=== PATIENT | male | born 1950 | race Caucasian/White ===

== ENCOUNTER → 2021-01-21 09:31 | Outpatient (BNVA) | payer MEDICARE, OTHER, SELFPAY | PROVIDERS: PCP Internal Medicine; Visit Provider Urology | DX: Z13.89 Encounter for screening for other disorder (principal) | CPT/HCPCS: 99212 ==

== ENCOUNTER 2021-02-26 13:56 | Outpatient (REF) | payer MEDICARE, OTHER, SELFPAY ==
--- NOTE | ~2021-02-26 | CT_ITS ---
EXAMINATION: CT SINUS WITHOUT CONTRAST CLINICAL INFORMATION: Sinonasal polyp, deviated septum. COMPARISON: None TECHNIQUE: 2 mm thin axial and 2 mm thin sagittal and coronal images of the sinuses were obtained without contrast. This CT examination was performed using dose optimization techniques as appropriate, variously including the following: *Automated exposure control *Adjustment of mA and/or kV according to patient size (this includes techniques or standardized protocols for targeted exams where dose is matched to indication/reason for exam; i.e. extremities or head) *Use of iterative reconstruction technique DLP: 112 mGy-cm FINDINGS: FRONTAL SINUSES AND DRAINAGE PATHWAYS: Normal. MAXILLARY SINUSES AND DRAINAGE PATHWAYS: There is lobulated mucosal periosteal thickening throughout both sinuses. The ostiomeatal complexes are widely patent. There is evidence of bilateral functional endoscopic sinus surgery. ETHMOID SINUSES: There is minimal mucoperiosteal thickening bilateral anterior ethmoid sinuses. The ethmoid roofs are symmetric, with olfactory fossa depth of 0.4 cm on the right and 0.3 cm on the left. SPHENOID SINUSES AND DRAINAGE PATHWAYS: Normal. The sphenoid ostia are patent. The carotid canals are covered by bone. NASAL CAVITY/NASOPHARYNX: The nasal cavity is clear. There is no nasal septal deviation/spurring. There is a paradoxical left middle turbinate. The turbinates are otherwise unremarkable. ADDITIONAL RELEVANT FINDINGS: No periapical disease is seen. The TMJs articulate normally. The orbits and skull base soft tissues are unremarkable. The middle ear cavities and mastoid air cells are clear. Limited evaluation demonstrates no acute intracranial findings. CT/CT sinus wo con IMPRESSION: Moderate mucoperiosteal thickening likely polyposis of the maxillary sinuses. There is evidence of previous functional endoscopic sinus surgery changes. Minimal mucoperiosteal thickening anterior ethmoid sinuses. Bilateral frontoethmoidal recesses are widely patent.
== END 2021-02-26 13:57 | disposition home or self-care (01) ==
LOC: HO.CT 13:56
PROVIDERS: PCP Internal Medicine; Visit Provider Otolaryngology
DX: J34.2 Deviated nasal septum (principal); J33.8 Other polyp of sinus
CPT/HCPCS: 70486

== ENCOUNTER → 2022-01-25 09:21 | Outpatient (BNVA) | payer MEDICARE, OTHER, SELFPAY | PROVIDERS: PCP Internal Medicine; Visit Provider Urology | DX: R97.20 Elevated prostate specific antigen [PSA] (principal); N52.9 Male erectile dysfunction, unspecified | CPT/HCPCS: 99212 ==

== ENCOUNTER 2024-06-13 11:25 | Outpatient (REF) | payer MEDICARE, OTHER, SELFPAY ==
[2024-06-13 14:08] LABS: Prostate Specific Antigen 1.15 ng/mL (<0.05-4.0)
== END 2024-06-13 11:26 | disposition home or self-care (01) ==
LOC: HO.10HDL 11:25
PROVIDERS: Visit Provider Urology
DX: Z12.5 Encounter for screening for malignant neoplasm of prostate (principal); R97.20 Elevated prostate specific antigen [PSA]
CPT/HCPCS: 36415; 84153

== ENCOUNTER 2024-06-21 09:17 | Outpatient (AMB) | payer MEDICARE, OTHER, SELFPAY ==
--- NOTE | 2024-06-21 09:26 | A.OFFVIS_ITS ---
Intake Visit Reasons: 1Y PSA(SET) Intake Note: Patient is Present for PSA Follow up Urology Med: Sildenafil Antibiotic Allergy: Azithromycin, Cipro Blood Thinner: None PSA: 06/13/24 1.15 Patient is requesting a refill be [facility] to [facility] Required: No Accompanied by: Self / Same As Patient Allergies azithromycin Allergy (Unknown, Verified 06/21/24 09:29) Unknown ciprofloxacin [Cipro] Allergy (Unknown, Verified 06/21/24 09:29) Unknown Dust Allergy (Unknown, Uncoded 06/21/24 09:29) Unknown Mold Allergy (Unknown, Uncoded 06/21/24 09:29) Unknown HPI Comments Details: Porfirio Armstrong is a very pleasant male. He is a patient of Dr Castillo. He is seen in the office today for the following urologic conditions. - erectile dysfunction Last seen in mid 2021 Had cardiac bypass surgery early this year Had minimal symptoms but occluded LAD Stable urinary parameter. Minimal urge, effective stream, complete emptying. PSA remains in range Continues with good response to sildenafil on demand Erectile dysfunction: Continue good response to intermittent medications He presents today for for continued evaluation and management of erectile dysfunction. Symptoms have been present for/since years ago. Current treament includes Viagra/sildenafil. Treatment side effects include none. Prior therapies include oral medications. At this time he experiences erections are full, rigid and adequate for vaginal penetration. Nocturnal erections do occur. Currently they are in a stable relationship. Recent labs included a PSA (prostate-specific antigen) November 2014 0.9, January 2017 1.4, 01/24 1.4, 01/25 1.5, 01/26 1.4, 06/30 1.2 Overall he is satisfied with the current management. Therapeutic plan includes maintaining current therapy - Rx will be provided. [facility] Medical History Allergic rhinitis Erectile dysfunction Review of Systems Const Denies chills and Denies fever(s) Card Reports no additional complaints and Denies syncope Resp Denies cough GI Denies abdominal pain and Denies heartburn Reports as per HPI and Denies change in libido Neuro Denies syncope Psych Denies change in libido Endo Denies change in libido Physical Exam Const General: cooperative, healthy appearing, comfortable and no acute distress Orientation/consciousness: patient oriented x3 HEENT Face and sinus: Yes normal facial exam Mouth: moist mucous membranes Neck Neck: Yes normal visual inspection, Yes full ROM and Yes trachea midline Chest Chest palpation & inspection: normal inspection of the chest Resp Effort & Inspection: normal respiratory effort, able to speak in complete sentences and no respiratory distress GI Inspection: Yes normal to inspection Back/Spine/Pelvis Cervical Spine: normal cervical lordosis Thoracic/Lumbar Spine: thoracic and lumbar spine normal to inspection Skin General skin exam: no rashes or lesions noted Neuro General: patient oriented x3, gait normal, tone normal and moves all extremities Extrem General: Yes normal to inspection and Yes capillary refill normal Assessment & Plan Assessment & Plan (1) Erectile dysfunction: Code(s): N52.9 - Male erectile dysfunction, unspecified Category: Medical Plan Twelve month follow-up Medications: Refilled sildenafil administer 30 minutes to 4 hours before activity 100 mg PO DAILY PRN 30 tabs 3RF sexual activity 90 days N52.9 - Male erectile dysfunction, unspecified Patient Instructions: Imaging studies, laboratory and physical exam results were discussed and reviewed in detail. No major barriers to patient understanding were identified. An opportunity to ask questions regarding the treatment plan was provided. All questions were answered. The patient expressed understanding and agreement with the above treatment plan. The patient is aware they should contact our office by phone for worsening of their current condition or the appearance of new urologic symptoms. Compliance is encouraged with any medications and followup testing that is ordered. It is a privilege to participate in the urologic care of your patient. If you have any questions or concerns regarding treatment for the above conditions, or other urologic issues, please do not hesitate to contact me. The office telephone contact is [phone]. This note is constructed using voice recognition software. While every effort has been made to ensure accuracy vice president pharmacy errors may have been included. Yours sincerely, Dr Lexa Soto MD, [facility] - Urology Providers of Expert, Compassionate Care for the Genitourinary System Coding Level of Care Code Est Pt Level 4 (34353) Diagnoses Erectile dysfunction N52.9
== END 2024-06-21 10:02 | disposition home or self-care (01) ==
PROVIDERS: PCP Internal Medicine; Visit Provider Urology
DX: N52.9 Male erectile dysfunction, unspecified (principal)
CPT/HCPCS: 99214

== ENCOUNTER → 2024-06-21 09:17 | Outpatient (BNVA) | payer MEDICARE, OTHER, SELFPAY | PROVIDERS: PCP Internal Medicine; Visit Provider Urology | DX: N52.9 Male erectile dysfunction, unspecified (principal); Z79.899 Other long term (current) drug therapy | CPT/HCPCS: 99212 ==

== ENCOUNTER 2025-06-12 09:17 | Outpatient (REF) | payer MEDICARE, OTHER, SELFPAY ==
--- OUTSIDE RECORDS SUMMARY | 2025-06-11 09:25 | XMS_ITS | Encounter Summary ---
Author Organization [facility] Address [address] [place] [address] Care Team Providers Care Human Service Specialist Name Role Phone Mary Castillo MD Primary Care Provider [phone] Encounter Details Date Type Department Care Team (Latest Contact Info) Description 06/11/2025 9:25 AM EST Hospital Encounter [facility] [address] [phone] Pari Richey MD [address] [place] [address] Nasal polyps (Primary Dx) Social History Tobacco Use Types Packs/Day Years Used Date Smoking Tobacco: Former Smokeless Tobacco: Never Alcohol Use Standard Drinks/Week Comments Yes 0 (1 standard drink = 0.6 oz pur e alcohol) Sex and Gender Information Value Date Recorded Sex Assigned at Male 04/30/2025 1:19 PM EDT Legal Sex Male 3:34 PM EST Gender Identity Male 04/30/2025 1:19 PM EDT Sexual Orientation Straight 04/30/2025 1: 19 PM EDT documented as of this encounter Last Filed Vital Signs Vital Sign Reading Time Taken Comments Blood Pressure 131/71 06/11/2025 9:31 AM EST Pulse 74 06/11/2025 9:31 AM EST Temperature 36.7 C (98 F) 06/11/2025 9:31 AM EST Respiratory Rate 18 06/11/2025 9:31 AM EST Oxygen Saturation 100% 06/11/2025 9:31 AM EST Inhaled Oxygen Concentration - - Weight - - Height - - Body Mass Index - - documented in this encounter Progress Notes * Jerry Baum RN - 06/11/2025 9:30 AM EST Patient arrives ambulatory for Dupixent injection. Stable patient assessment. Patient resting comfortably in chair with call bailey in reach. Injection allowed to come to room temperature for 45 minutes. 1039-Dupixent Injection administered in LEFT lower abdomen without incident. Patient to remain for 30 minute observation period. 1110-Patient feeling well after observation. Patient's next appointment scheduled and provided to him. Patient stable upon discharge. documented in this encounter Plan of Treatment Upcoming Encounters Date Type Department Care Team (Late st Contact Info) Description 06/25/2025 9:00 AM EST Appointment [address] [phone] 07/09/2025 9:00 AM EST Appointment [facility] [address] [place] [phone] 07/23/2025 9:[address] [facility] [address] [place] [phone] 07/24/2025 8:15 AM EST Office Visit Internal Medicine - [place] [address] [facility] [address] [place] [phone] Mary Castillo MD [address] [place] [phone] 04/28/2026 10:00 AM EDT Ancillary Procedure [facility] [address] [facility] [address] [place] [phone] documented as of this encounter Visit Diagnoses Diagnosis Nasal polyps- Primary Unspecified nasal polyp documented in this encounter Administered Medications Inactive Administered Medications - up to 3 most recent administrations Medication Order MAR Action Action Date Dose Rate Site dupilumab (DUPIXENT) pen 300 mg 300 mg, subcutaneous, Once, On Mon06/11/25 at 1015, For 1 doseIndications:Nasal polyps Given 06/11/2025 10:39 AM EST 300 mg Left Lower Abdomen documented in this encounter Orders Medications Ordered That Paul ht Not Have Been Administered Count Last Ordered Date First Ordered Date dupilumab (DUPIXENT) pen 300 mg 1 5 documented in this encounter Additional Health Concerns Assessment Noted Time PHQ-9 Depression Total Score: 0 01/23/20 8:11 AM EDT documented as of this encounter Care Teams Human Service Specialist Relationship Specialty Start Date End Date Mary Castillo MD [address] [place] [phone] PCP - General Internal Medicine 05/26/18 documented as of this encounter
--- OUTSIDE RECORDS SUMMARY | 2025-06-12 10:15 | XMS_ITS ---
Author Name [facility] Organization Unknown History of Medication Use Medication Directions Dispensed Refills Start Date End Date Status lidocaine (PF) 10 mg/mL (1 %) injection solution Take 1 mL by injection route. 5 active triamcinolone acetonide 40 mg/mL suspension for injection Take 20 mg by injection route. 5 active Marcaine (PF) 0.5 % (5 mg/mL) injection solution Take 8 mL by injection route. 5 active Marcaine (PF) 0.5 % (5 mg/mL) injection solution Take 8 mL by injection route. 5 active triamcinolone acetonide 40 mg/mL suspension for injection Take 80 mg by injection route. 4 active lidocaine (PF) 100 mg/5 mL (2 %) injection syringe Take 2 mL by injection route. 4 09/28/19 24 completed lidocaine (PF) 100 mg/5 mL (2 %) injection syringe Take 2 mL by injection route. 4 09/28/19 24 completed meloxicam 15 mg tablet Take 1 tablet every day by oral route with meals for 7 days. 3 12/28/19 24 active Kenalog 40 mg/mL suspension for injection Take 1 mL by injection route. 3 active lidocaine (PF) 10 mg/mL (1 %) injection solution Take 1 mL by injection route. 3 active celecoxib 200 mg capsule TAKE 1 CAPSULE BY MOUTH EVERY DAY 12/28/19 25 completed celecoxib 200 mg capsule TAKE 1 CAPSULE BY MOUTH EVERY DAY 12/28/19 25 active polymyxin B sulfate 10,000 unit-trimethoprim 1 mg/mL eye drops INSTILL 1 DROP 4 TIMES A DAY FOR 7 DAYS 12/28/19 25 completed amoxicillin 875 mg-potassium clavulanate 125 mg tablet TAKE 1 TABLET BY MOUTH TWICE A DAY FOR 7 DAYS 12/11/19 25 completed amoxicillin 875 mg-potassium clavulanate 125 mg tablet TAKE 1 TABLET BY MOUTH TWICE A DAY FOR 7 DAYS 12/11/19 25 completed prednisone 20 mg tablet TAKE 3 TABLETS B Y MOUTH DAILY X 2 DAYS, 2 TABLETS DAILY X 2 DAYS, THEN 1 TABLET DAILY X 2 DAYS 12/11/19 25 completed prednisone 20 mg tablet TAKE 3 TABLETS B Y MOUTH DAILY X 2 DAYS, 2 TABLETS DAILY X 2 DAYS, THEN 1 TABLET DAILY X 2 DAYS 12/11/19 25 completed cephalexin 500 mg capsule TAKE 2 CAPSULES EVERY 12 HOURS BY ORAL ROUTE DIRECTED FOR 7 DAYS, FOR HAND SKIN INFECTION. 09/10/19 25 completed cephalexin 500 mg capsule TAKE 2 CAPSULES EVERY 12 HOURS BY ORAL ROUTE DIRECTED FOR 7 DAYS, FOR HAND SKIN INFECTION. 09/10/19 25 active cephalexin 500 mg tablet TAKE 1 TABLET BY MOUTH THREE TIMES A DAY FOR 7 DAYS 09/10/19 25 completed cephalexin 500 mg tablet TAKE 1 TABLET BY MOUTH THREE TIMES A DAY FOR 7 DAYS 09/10/19 25 completed GaviLyte-G 236 gram-22.74 gram-6.74 gram-5.86 gram oral solution 04/04/20 24 completed GaviLyte-G 236 gram-22.74 gram-6.74 gram-5.86 gram oral solution 04/04/20 24 completed ipratropium bromide 42 mcg (0.06 %) nasal spray SPRAY ONCE IN EACH NOSTRIL TWICE A DAY 04/04/20 24 completed ipratropium bromide 42 mcg (0.06 %) nasal spray SPRAY ONCE IN EACH NOSTRIL TWICE A DAY 04/04/20 24 completed metoprolol tartrate 25 mg tablet TAKE 1/2 (HALF) TABLET BY MOUTH TWO TIMES A DAY 04/04/20 24 completed metoprolol tartrate 25 mg tablet TAKE 1/2 (HALF) TABLET BY MOUTH TWO TIMES A DAY 04/04/20 24 completed potassium chloride ER 10 mEq capsule,extended release TAKE 1 CAPSULE BY MOUTH TWO TIMES A DAY 04/04/20 24 completed potassium chloride ER 10 mEq capsule,extended release TAKE 1 CAPSULE BY MOUTH TWO TIMES A DAY 04/04/20 24 completed amiodarone 200 mg tablet TAKE 1 TABLET BY MOUTH TWO TIMES A DAY 12/28/19 24 completed amiodarone 200 mg tablet TAKE 1 TABLET BY MOUTH TWO TIMES A DAY 12/28/19 24 completed furosemide 40 mg tablet TAKE 1 TABLET BY MOUTH TWO TIMES A DAY 12/28/19 24 completed furosemide 40 mg tablet TAKE 1 TABLET BY MOUTH TWO TIMES A DAY 12/28/19 24 completed meloxicam 15 mg tablet TAKE 1 TABLET BY MOUTH EVERY DAY WITH MEALS FOR 7 DAYS 12/28/19 24 completed methylprednisolone 4 mg tablets in a dose pack TAKE 6 TABLETS ON DAY 1 DIRECTED ON PACKAGE AND DECREASE BY 1 TAB EACH DAY FOR A TOTAL OF 6 DAYS 12/28/19 24 completed mupirocin 2 % topical ointment APPLY TOPICALLY TO BOTH NOSTRILS EVERY 12 HOURS FOR 2 DAYS 12/28/19 24 completed mupirocin 2 % topical ointment APPLY TOPICALLY TO BOTH NOSTRILS EVERY 12 HOURS FOR 2 DAYS 12/28/19 24 active Paxlovid 300 mg (150 mg x 2)-100 mg tablets in a dose pack TAKE 3 TABLETS BY MOUTH TWICE A DAY FOR 5 DAYS 12/28/19 24 completed losartan 50 mg tablet TAKE 1 TABLET BY MOUTH EVERY DAY 09/28/19 24 completed losartan 50 mg tablet TAKE 1 TABLET BY MOUTH EVERY DAY 09/28/19 24 completed simvastatin 40 mg tablet TAKE 1 TABLET BY MOUTH EVERYDAY AT BEDTIME 09/28/19 24 completed simvastatin 40 mg tablet TAKE 1 TABLET BY MOUTH EVERYDAY AT BEDTIME 09/28/19 24 completed valsartan 160 mg tablet TAKE 1 TABLET BY MOUTH EVERY DAY. PLEASE D/C LOSARTAN 09/28/19 24 completed valsartan 160 mg tablet TAKE 1 TABLET BY MOUTH EVERY DAY. PLEASE D/C LOSARTAN 09/28/19 24 active Marcaine (PF) 0.5 % (5 mg/mL) injection solution active lidocaine (PF) 10 mg/mL (1 %) injection solution active triamcinolone acetonide 40 mg/mL suspension for injection active triamcinolone acetonide 40 mg/mL suspension for injection active lidocaine (PF) 10 mg/mL (1 %) injection solution active aspirin 81 mg tablet,delayed release TAKE 1 TABLET BY MOUTH EVERY DAY active aspirin 81 mg tablet,delayed release TAKE 1 TABLET BY MOUTH EVERY DAY active atorvastatin 80 mg tablet TAKE 1 TABLET BY MOUTH EVERY DAY, PLEASE STOP SIMVASTATIN active atorvastatin 80 mg tablet TAKE 1 TABLET BY MOUTH EVERY DAY, PLEASE STOP SIMVASTATIN active benzonatate 200 mg capsule TAKE 1 CAPSULE BY MOUTH THREE TIMES A DAY NEEDED FOR COUGH FOR 5 DAYS active benzonatate 200 mg capsule TAKE 1 CAPSULE BY MOUTH THREE TIMES A DAY NEEDED FOR COUGH FOR 5 DAYS active fluocinonide 0.05 % topical ointment APPLY TO ARMS, TRUNK, AND LEGS 2 TIMES A DAY NEEDED FOR FLARES active fluocinonide 0.05 % topical ointment APPLY TO ARMS TRUNK AND LEGS TWICE DAILY NEEDED FOR FLARES. active folic acid 1 mg tablet TAKE 1 TABLET (1,000 MCG TOTAL) BY MOUTH ONCE DAILY active folic acid 1 mg tablet TAKE 1 TABLET BY MOUTH EVERY DAY active furosemide 20 mg tablet TAKE 1 TABLET BY MOUTH 1 (ONE) TIME EACH DAY IF NEEDED (FOR INCREASED LEG SWELLING OR WEIGHT GAIN). active furosemide 20 mg tablet TAKE 1 TABLET BY MOUTH 1 (ONE) TIME EACH DAY IF NEEDED (FOR INCREASED LEG SWELLING OR WEIGHT GAIN). active metoprolol succinate ER 25 mg tablet,extended release 24 hr TAKE 1 TABLET BY MOUTH EVERY DAY active metoprolol succinate ER 25 mg tablet,extended release 24 hr TAKE 1 TABLET BY MOUTH EVERY DAY active polymyxin B sulfate 10,000 unit-trimethoprim 1 mg/mL eye drops INSTILL 1 DROP 4 TIMES A DAY FOR 7 DAYS active sildenafil 100 mg tablet TAKE 1 TABLET DAILY 30 MINUTES TO 4 HOURS BEFORE SEXUAL ACTIVITY active sildenafil 100 mg tablet TAKE ONE TABLET BY MOUTH EVERY DAY NEEDED FOR SEXUAL ACTIVITY 30 MINUTES TO 4 HOURS BEFORE ACTIVITY active tacrolimus 0.1 % topical ointment APPLY TO ARMS, TRUNK, AND LEGS TWICE A DAY ALTERNATING WITH TOPICAL STEROIDS active tacrolimus 0.1 % topical ointment APPLY TO ARMS, TRUNK, AND LEGS TWICE DAILY, ALTERNATING WITH TOPICAL STEROIDS active valsartan 80 mg tablet TAKE 1 TABLET BY MOUTH EVERY DAY active valsartan 80 mg tablet TAKE 1 TABLET BY MOUTH EVERY DAY active Allergies Allergen Reaction Severity Comment Documented Date Source Statu s AZITHROMYCIN [facility] CIPROFLOXACIN [facility] Problems Problem Status Onset Date Problem Type Date of Resoluti on Source Osteoarthritis of right glenohumeral joint active 2024-01-02 ProblemAct [facility] T Disorder of shoulder active 2024-12-10 ProblemAct [facility] Pain of left shoulder joint active 2023-03-15 ProblemAct [facility] Impingement syndrome of left shoulder region active 2022-12-14 ProblemAct [facility] ECT Calcific tendinitis of left shoulder active 2022-12-15 ProblemAct [facility] Arthritis of left glenohumeral joint active 2024-01-02 ProblemAct E[facility]AONEC T Pain of right shoulder joint active 2023-03-15 ProblemAct [facility] Impingement syndrome of right shoulder region active 2022-12-14 ProblemAct E[facility]AO NECT Calcific tendinitis of right shoulder active 2022-12-15 ProblemAct [facility] Prepatellar bursitis of left knee active 2023-05-10 ProblemAct [facility] Encounters Encounter Type Encounter Reason Primary Diagnosis Location Date Ambulatory [facility] [place] 04/09/2025 Ambulatory [facility] [place] 04/08/2025 Ambulatory [facility] [place] 01/13/2025 Ambulatory [facility] [place] 01/12/2025 Ambulatory [facility] [place] 12/31/2024 Ambulatory [facility] [place] 12/27/2024 Ambulatory [facility] [place] 12/10/2024 Ambulatory [facility] [place] 12/03/2024 Ambulatory [facility] [place] 10/15/2024 Ambulatory [facility] [place] 09/11/2024 Ambulatory [facility] [place] 09/10/2024 Ambulatory [facility] [place] 09/10/2024 Ambulatory [facility] [place] 09/09/2024 Ambulatory [facility] [place] 06/21/2024 Ambulatory [facility] [place] 06/20/2024 Ambulatory [facility] [place] 04/05/2024 Ambulatory [facility] [place] 04/04/2024 Ambulatory [facility] [place] 01/03/2024 Ambulatory [facility] [place] 12/28/2023 Ambulatory [facility] [place] 09/28/2023 Ambulatory [facility] [place] 06/27/2023 Ambulatory [facility] [place] 05/10/2023 Ambulatory [facility] [place] 05[facility]10/2023 Ambulatory [facility] [place] 05/08/2023 Ambulatory [facility] [place] 05/02/2023 Ambulatory [facility] [place] 04/25/2023 Ambulatory [facility] [place] 03/15/2023 Ambulatory [facility] [place] 03/09/2023 Ambulatory [facility] [place] 03/09/2023 Ambulatory [facility] [place] 03/09/2023 Ambulatory [facility] [place] 03/09/2023 Ambulatory [facility] [place] 03/08/2023 Ambulatory [facility] [place] 03/08/2023 Ambulatory [facility] [place] 01/17/2023 Ambulatory [facility] [place] 01/17/2023 Ambulatory [facility] [place] 12/14/2022 Ambulatory [facility] [place] 12/14/2022 Ambulatory [facility] [place] 12/07/2022 Ambulatory [facility] [place] 12/07/2022 Care Team Organization Name Specialty Phone Email Start Date End Da te [facility] 03/26/2025 [facility] 06/14/2022 03/25/20 24
--- OUTSIDE RECORDS SUMMARY | 2025-06-12 10:15 | XMS_ITS | Clinical Summary ---
Author Organization [facility] Address [address] [place] [address] Phone Care Team Providers Care Counter Maker Name Role Phone Mary Castillo MD Primary Care Provider Allergies Active Allergy Reactions Criticality Noted Date Comments Azithromycin Rash High 06/17/2009 Ciprofloxacin Rash High 06/17/2009 Medications aspirin 81 mg EC tablet Take 1 tablet (81 mg total) by mouth 1 (one) time each day. 018 Active cyanocobalamin (VITAMIN B-12) 500 mcg tablet Take 2 tablets (1,000 mcg total) by mouth 1 (one) time each day. Active sildenafiL (VIAGRA) 100 mg tablet Take 1 tablet (100 mg total) by mouth 1 (one) time each day if needed. 018 Active calcium carbonate (CALCIUM 600 ORAL) Take by mouth 2 (two) times a day. Active multivit-min/oral jorge fumarate (MULTI VITAMIN ORAL) Take by mouth. Activ e folic acid (FOLVITE) 1 mg tablet Take 1 tablet (1,000 mcg total) by mouth 1 (one) time each day. 90 tablet 2 025 Active atorvastatin (LIPITOR) 80 mg tabletIndication s:Presence of aortocoronary bypass graft,Pure hypercholesterol emia, unspecified TAKE 1 TABLET BY MOUTH EVERY DAY, PLEASE STOP SIMVASTATIN 90 tablet 3 025 Active furosemide (LASIX) 20 mg tablet TAKE 1 TABLET BY MOUTH 1 (ONE) TIME EACH DAY IF NEEDED (FOR INCREASED LEG SWELLING OR WEIGHT GAIN). 90 tablet 2 025 Active metoprolol succinate (TOPROL-XL) 25 mg 24 hr tablet Take 1 tablet (25 mg total) by mouth 1 (one) time each day. 90 tablet 3 025 Active valsartan (DIOVAN) 80 mg tabletIndication s:Presence of aortocoronary bypass graft,Chronic systolic (congestive) heart failure (CMS/HCC V24, CMS/HCC V28) TAKE 1 TABLET BY MOUTH 1 TIME EACH DAY. 90 tablet 3 025 Active metoprolol succinate (TOPROL-XL) 25 mg 24 hr tablet Take 1 tablet (25 mg total) by mouth 1 (one) time each day. 90 tablet 025 2024 Discontinued(R eorder) valsartan (DIOVAN) 80 mg tabletIndication s:Presence of aortocoronary bypass graft,Chronic systolic (congestive) heart failure (CMS/HCC V24, CMS/HCC V28) Take 1 tablet (80 mg total) by mouth 1 (one) time each day. 90 tablet 025 2024 Discontinued Active Problems Problem Noted Date Diagnosed Date Chronic systolic heart failure (CMS/HCC V24, CMS /HCC V28) 05/06/2025 Assessment & Plan (05/06/2025 9:03 AM EDT): We will plan for an echocardiogram in around 1 year as he had mildly reduced ejection fraction prior to bypass surgery; at present he is not having any symptoms consistent with congestive heart failure. Continue metoprolol and valsartan. Nasal polyps 04/23/2025 HTN (hypertension), benign 07/24/2024 Assessment & Plan (01/22/2025 8:53 AM EDT): Mixed hyperlipidemia 07/24/2024 Assessment & Plan (01/22/2025 8:53 AM EDT): H/O coronary artery bypass surgery 07/24/2024 Assessment & Plan (05/06/2025 9:03 AM EDT): Status post CABG presently asymptomatic without angina. Continue low-dose of aspirin definitely. Continue Lipitor at current dosing with goal LDL less than 70. Blood pressure goal less than 130/80 The patient has pedal edema which appears to be most consistent with venous insufficiency. Recommended increasing Lasix for 1 week to 40 mg a day to see if he has sufficient response. The next up would be knee-high compression stockings if the Lasix is ineffective. He also expressed concerned about his carotid arteries although based on available records prior to his bypass surgery he did not have significant carotid artery disease and I counseled that in the absence of a murmur or pre-existing known carotid artery disease, a carotid artery ultrasound is not indicated. I will confirm his prior records to ensure that he he does not have significant carotid artery disease. Assessment & Plan (01/22/2025 8:53 AM EDT): Allergic rhinitis due to pollen 07/24/2024 Hypogammaglobulinemia ([facility] V24) 12/15/2021 Assessment & Plan (01/22/2025 8:53 AM EDT): Lateral epicondylitis of left elbow 07/19/2019 Shoulder impingement syndrome, left 02/12/2019 Shoulder impingement, right 02/12/2019 Bilateral shoulder region arthritis 04/17/2018 Chronic left shoulder pain 09/12/2017 Complete tear of right rotator cuff 09/12/2017 Encounters Date Type Department Care Team Description 06/11/2025 9:25 AM EST Hospital Encounter [facility] [address] [phone] Pari Richey MD Nasal polyps (Primary Dx) 05/28/2025 9:18 AM EDT - 05/28/2025 11:59 PM EDT Hospital Encounter [facility] [address] [phone] Pari Richey MD Nasal polyps (Primary Dx) Discharge Disposition: Home or Self Care 05/20/2025 Telephone [facility] [address] [place] [phone] Roger Samano NP 05/14/2025 9:13 AM EDT - 05/14/2025 11:59 PM EDT Hospital Encounter [address] [phone] Pari Richey MD Nasal polyps (Primary Dx) Discharge Disposition: Home or Self Care 05/02/2025 2:30 PM EDT Office Visit [facility] [address] [place] [phone] Severino Chino MD HTN (hypertension), benign (Primary Dx); Presence of aortocoronary bypass graft; Chronic systolic (congestive) heart failure (CMS/HCC V24, CMS/HCC V28); H/O coronary artery bypass surgery; Chronic systolic heart failure (CMS/HCC V24, CMS/HCC V28) 04/30/2025 1:20 PM EDT - 04/30/2025 11:59 PM EDT Hospital Encounter [address] [phone] Pari Richey MD Nasal polyps (Primary Dx) Discharge Disposition: Home or Self Care from Last 3 Months Surgical History Surgery Date Site/Laterality Comments CHOLECYSTECTOMY PROCEDURE: HISTORICAL CHOLECYSTECTOMY Medical History Medical History Date Comments Gout 10/16/2014 DX:Gout Hypercholesterolemia 06/22/2017 DX:Hypercho lesterolemia Hypertension 12/26/2017 DX:Hypertension 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/2017 DX :Low serum IgG1 and IgM levels Pulmonary nodules 11/01/2016 DX:Pulmonary n odules Vitamin B12 deficiency 12/17/2015 DX:Vitami n B12 deficiency Social History Tobacco Use Types Packs/Day Years [...] Orientation Straight 04/30/2025 1: 19 PM EDT Obstetrics History Last Filed Vital Signs Vital Sign Reading Time Taken Comments Blood Pressure 131/71 06/11/2025 9:31 AM EST Pulse 74 06/11/2025 9:31 AM EST Temperature 36.7 C (98 F) 06/11/2025 9:31 AM EST Respiratory Rate 18 06/11/2025 9:31 AM EST Oxygen Saturation 100% 06/11/2025 9:31 AM EST Inhaled Oxygen Concentration - - Weight 92.1 kg (203 lb) 05/02/2025 2:23 PM EDT Height 188 cm (6' 2 ) 05/02/2025 2:23 PM EDT Body Mass Index 26.06 05/02/2025 2:23 PM EDT Plan of Treatment Upcoming Encounters Date Type Department Care Team (Late st Contact Info) Description 06/25/2025 9:00 AM EST Appointment [facility] [address] [phone] 07/09/2025 9:00 AM EST Appointment [facility] [address] [place] [phone] 07/23/2025 9:00 AM EST Appointment [facility] [address] [phone] 07/24/2025 8:15 AM EST Office Visit [facility] - [place] [address] [facility] [address] [place] [phone] Mary Castillo MD [address] [place] [phone] 04/28/2026 10:00 AM EDT Ancillary Procedure [facility] [address] [facility] [address] [place] [phone] Health Maintenance Due Date Last Done Comments Colorectal Cancer Screening: Colonoscopy 1950 Zoster Vaccines (2 of 3) 02/10/2014 12/16/2013 Abdominal Aortic Aneurysm (AAA) Screen 07/14/2022 Hepatitis C Screening 07/14/2022 Social Influencers of Health Screening 07/14/2022 RSV Immunization Adult Patients (1 - 1-dose 75+ series) 2024 COVID-19 Vaccine (4 - 5-26 season) 2025 08/04/2021, 10/13/2020, 09/15/2020 Hypertension/CHF/CAD Annual BMP Blood Test 01/20/2026 01/20/2025, 12/13/2024, 06/23/2023 Medicare Annual Wellness Visit 01/22/2026 01/22/2025 Falls Risk Assessment 06/11/2026 06/11/2025 Cholesterol Screening (Lipid Panel) 01/20/2030 01/20/2025 DTaP,Tdap,and Td Vaccines (2 - Td or Tdap) 05/22/2034 05/22/2024 Pneumococcal Vaccine: 50+ Years Completed 04/18/2018, 06/16/2016, 10/16/2014 Depression Screening Completed 01/22/2025 Influenza Vaccine Completed 04/26/2025, , 05/15/2023, Additional history exists HIB Vaccines Aged Out No longer eligi ble based on patient's age to complete this topic HPV Vaccines Aged Out No longer eligi ble based on patient's age to complete this topic Hepatitis A Vaccines Aged Out No long er eligible based on patient's age to complete this topic Hepatitis B Vaccines Aged Out No long er eligible based on patient's age to complete this topic IPV Vaccines Aged Out No longer eligi ble based on patient's age to complete this topic MMR Vaccines Aged Out No longer eligi ble based on patient's age to complete this topic Meningococcal ACWY Vaccine Aged Out N o longer eligible based on patient's age to complete this topic Meningococcal B Vaccine Aged Out No l onger eligible based on patient's age to complete this topic RSV Immunization Patients Under 20 months Aged Out No longer eligible based on patient's age to complete this topic Varicella Vaccines Aged Out No longer eligible based on patient's age to complete this topic Procedures Procedure Name Priority Date/Time Associated Diagnosis Comments ECG 12-LEAD Routine 05/02/2025 2:35 PM EDT HTN (hypertension), benign COMPREHENSIVE METABOLIC PANEL Routine 01/20/2025 7:44 AM EDT Hypogammaglobuline margoth (CMS/HCC V24) HTN (hypertension), benign Mixed hyperlipidemia H/O coronary artery bypass surgery LIPID PANEL WITH REFLEX TO DIRECT LDL Routine 01/20/2025 7:44 AM EDT Hypogammaglobuline margoth (CMS/HCC V24) HTN (hypertension), benign Mixed hyperlipidemia H/O coronary artery bypass surgery from Last 3 Months or Most Recently Relevant to Health Maintenance Results * ECG 12 lead (05/02/2025 2:35 PM EDT) Ventricular Rate ECG 60 BPM GEMUSE Atrial Rate 60 BPM GEMUSE P-R Interval 132 ms GEMUSE QRS Duration 82 ms GEMUSE Q-T Interval 408 ms GEMUSE QTc 408 ms GEMUSE P Wave [place]y 19 degrees GEMUSE R [place] 80 degrees GEMUSE T [place] -9 degrees GEMUSE ECG Interpretation Normal sinus rhythm Septal infarct , age undetermined Abnormal ECG When compared with ECG of 02-OCT-2016 08:57, Vent. rate has decreased BY 29 BPM Septal infarct is now Present T wave inversion now evident in Inferior leads T wave amplitude has decreased in Anterior leads Confirmed by SEVERINO CHINO ([id number]) on 05/05/2025 10:45:15 AM GEMUSE 05/02/2025 2:35 PM EDT 05/05/2025 10:45 AM EDT Severino Chino MD ECG ORDERABLES Final Result GEMUSE * Lipid panel with reflex to direct LDL (01/20/2025 7:44 AM EDT) Cholesterol 116 0 - 200 mg/dL LAB CHEMISTRY METHOD 01/20/2025 2:20 PM EDT [facility] Triglycerides 74 0 - 150 mg/dL LAB CHEMISTRY METHOD 01/20/2025 2:20 PM EDT [facility] HDL 77 >=40 mg/dL LAB CHEMISTRY METHOD 01/20/2025 2:20 PM EDT [facility] LDL Calculated 24 0 - 100 mg/dL LAB CHEMISTRY METHOD 01/20/2025 2:20 PM EDT [facility] VLDL Cholesterol Kristian 14.8 mg/dL LAB CHEMISTRY METHOD 01/20/2025 2:20 PM EDT [facility] Non HDL Chol. (LDL+VLDL) 39 <145 mg/dL LAB CHEMISTRY METHOD 01/20/2025 2:20 PM EDT [facility] Chol/HDL Ratio 1.5 0.0 - 4.4 LAB CHEMISTRY METHOD 01/20/2025 2:20 PM EDT [facility] Blood Venous blood specimen / Unknown Venipuncture / Unknown 01/20/2025 7:44 AM EDT 01/20/2025 7:44 AM EDT us Mary Castillo MD LAB BLOOD ORDERABLES Final Res ult [facility] [address] [place] [address], * (ABNORMAL) Comprehensive metabolic panel (01/20/2025 7:44 AM EDT) Sodium 143 133 - 145 mmol/L LAB CHEMISTRY METHOD 01/20/2025 2:20 PM [facility] Potassium 4.4 3.5 - 5.5 mmol/L LAB CHEMISTRY METHOD 01/20/2025 2:20 PM [facility] Chloride 107 96 - 110 mmol/L LAB CHEMISTRY METHOD 01/20/2025 2:20 PM [facility] CO2 31 21 - 32 mmol/L LAB CHEMISTRY METHOD 01/20/2025 2:20 PM [facility] Anion Gap 5 3 - 11 LAB CHEMISTRY METHOD 01/20/2025 2:20 PM [facility] Glucose 95 70 - 100 mg/dL LAB CHEMISTRY METHOD 01/20/2025 2:20 PM [facility] BUN 21 5 - 25 mg/dL LAB CHEMISTRY METHOD 01/20/2025 2:20 PM [facility] Creatinine 1.25 0.70 - 1.30 mg/dL LAB CHEMISTRY METHOD 01/20/2025 2:20 PM [facility] eGFR 60 >=60 mL/min/1. 73m2 LAB CHEMISTRY METHOD 01/20/2025 2:20 PM [facility] Comment:Calculation based on the Chronic Kidney Disease Epidemiology Collaboration (CKD-EPI) equation refit without adjustment for race. BUN/Creatinine Ratio 16.8 LAB CHEMISTRY METHOD 01/20/2025 2:20 PM [facility] Calcium 8.6 8.5 - 10.5 mg/dL LAB CHEMISTRY METHOD 01/20/2025 2:20 PM [facility] AST (SGOT) 20 10 - 42 unit/L LAB CHEMISTRY METHOD 01/20/2025 2:20 PM [facility] ALT (SGPT) 51 10 - 60 unit/L LAB CHEMISTRY METHOD 01/20/2025 2:20 PM [facility] Alkaline Phosphatase 85 42 - 121 unit/L LAB CHEMISTRY METHOD 01/20/2025 2:20 PM [facility] Total Protein 5.9(L) 6.0 - 8.0 g/dL LAB CHEMISTRY METHOD 01/20/2025 2:20 PM [facility] Albumin 3.8 3.2 - 5.0 g/dL LAB CHEMISTRY METHOD 01/20/2025 2:20 PM [facility] Total Bilirubin 1.5(H) 0.0 - 1.4 mg/dL LAB CHEMISTRY METHOD 01/20/2025 2:20 PM [facility] Blood Venous blood specimen / Unknown Venipuncture / Unknown 01/20/2025 7:44 AM EDT 01/20/2025 7:44 AM EDT us Mary Castillo MD LAB BLOOD ORDERABLES Final Res [facility] [address] [place] [address], from Last 3 Months or Most Recently Relevant to Health Maintenance Insurance MEDICARE [facility] Care Teams Counter Maker Relationship Specialty Start Date End Date Mary Castillo MD [address] [phone] PCP - General Internal Medicine 05/26/18
--- OUTSIDE RECORDS SUMMARY | 2025-06-12 10:15 | XMS_ITS | Data Portability ---
Author Organization [place] [facility] Stevie Orozco [facility] [place] Address [address] [place] [address] Care Team Providers Care Charge Aide Name Role Phone STEVEN PEPPER Primary Care Provider Assessment Encounter Date Assessment Date Assessment LastModified by Organization Details LastModified Time 06/20/2024 06/20/2024 The above findings were discussed in detail today with patient. He has evidence of recurrent pain after bilateral cortisone injections into his shoulders for glenohumeral joint arthritis and impingement syndrome. We discussed treatment options which include continued observation, anti-inflammatori es, ice, heat, physical therapy, consideration for surgery, another steroid injection. He like to proceed with another steroid injections today. He is happy with the results of the injections thus far. We did discuss things that he can do in between once the injection wears off such as trying Voltaren gel or taking NSAIDs, he will try this. He is not interested in surgery. He will follow-up with Dr. Taylor in 3 months for reevaluation. All of his questions were answered, he is in agreement the plan. Not available 06/20/2024 08:57:10 09/10/2024 09/10/2024 IMPRESSION: 74-year-old mqxfw-zepd-ijbmeb nt man with bilateral left worse than the right shoulder glenohumeral arthritis PLAN: I discussed the treatment options with the Patient includin. Living with the symptoms. 2. Continued non-operative management. 3. Surgical intervention. Nonoperative management would be in the form of medical management as well as home exercise program and from a steroid injection. A discussion regarding the risks and benefits of a glenohumeral corticosteroid injection was had with the patient. Risks include but not limited to pain, swelling, bleeding, infection, allergic reaction, elevated blood sugars, incomplete pain relief, tendon injury, bone loss, nerve damage, permanent skin depigmentation, fat atrophy and steroid flare. After reviewing the risks and benefits, patient verbalized understanding of the informed consent and elected to proceed with a corticosteroid injection. Patient tolerated the injection well. Operative intervention would be in the form of shoulder replacement. Patient is not interested at this time. Not available 09/10/2024 09:09:00 12/10/2024 12/10/2024 IMPRESSION: 74-year-old foybq-mxrh-bxmdjn nt man with bilateral left worse than the right shoulder rotator cuff tear arthropathy PLAN: I discussed the history, clinical examination, and imaging findings with the Patient in detail today. I discussed the treatment options with the patient includin. Living with the symptoms. 2. Continued non-operative management. 3. Surgical intervention. After going over all of their options in detail, my recommendation is to start with a dedicated course of non operative treatment. I explained that the mainstay of initial treatment are things like time, activity modification, relative rest, regular icing, physical therapy with a home exercise program (with a focus on four quadrant stretching, rotator cuff strengthening, periscapular muscle strengthening, and postural retraining), over the counter or prescription strength oral anti-inflammatori es if they can be safely tolerated (may need to discuss with primary care provider), acetaminophen as needed, and topical ointments. A discussion regarding the risks and benefits of a Glenohumeral corticosteroid injection was had with the patient. Risks include but not limited to pain, swelling, bleeding, infection, allergic reaction, elevated blood sugars, incomplete pain relief, tendon injury, bone loss, nerve damage, permanent skin depigmentation, fat atrophy and steroid flare. After reviewing the risks and benefits, patient verbalized understanding of the informed consent and elected to proceed with a corticosteroid injection. Patient tolerated the injection well. After a nice discussion with the patient and through shared decision making we ultimately elected to proceed with a focus on maximizing non-operative symptom management, to include: 1. Activity modification, relative rest, time. Maximize the things they can do, minimize the things that aggravate symptoms. 2. Regular icing as needed with ice packs placed about the shoulder for 20 minutes on and 20 minutes off. I cautioned the Patient to not place ice directly on the skin as this can cause a frostbite. 3. Gentle four quadrant stretching, rotator cuff strengthening, periscapular muscle strengthening, and postural retraining. the Patient would like to do this with the help and direction of a Physical Therapist, and I am supportive of this approach. I placed a referral to Physical Therapy today and encouraged them to call and make their initial evaluation and appointment soon. 4. Over the counter Tylenol as needed for pain. 5. Return to clinic in 3 months At the conclusion of the office visit, the patient verbally acknowledged that I answered all of their questions satisfactorily. PRIOR I discussed the treatment options with the Patient includin. Living with the symptoms. 2. Continued non-operative management. 3. Surgical intervention. Nonoperative management would be in the form of medical management as well as home exercise program and from a steroid injection. A discussion regarding the risks and benefits of a glenohumeral corticosteroid injection was had with the patient. Risks include but not limited to pain, swelling, bleeding, infection, allergic reaction, elevated blood sugars, incomplete pain relief, tendon injury, bone loss, nerve damage, permanent skin depigmentation, fat atrophy and steroid flare. After reviewing the risks and benefits, patient verbalized understanding of the informed consent and elected to proceed with a corticosteroid injection. Patient tolerated the injection well. Operative intervention would be in the form of shoulder replacement. Patient is not interested at this time. Not available 12/10/2024 09:00:10 12/27/2024 12/27/2024 The above findings were discussed in detail with the patient. He is evidence of a right small finger trigger finger and right middle finger PIP joint arthritis. Pathology and expected prognosis were discussed. For trigger finger treatment options were discussed including cortisone injection or A1 shakila release. He like to proceed with a cortisone injection today. For PIP joint arthritis, treatment options were discussed including activity modification, anti-inflammatori es, cortisone injection, or surgical procedures. He like to proceed with a cortisone injection today. Details of injection and as well as risks were discussed, including but not limited to infection, bleeding, nerve injury, no improvement, worsening of symptoms, flare reaction, skin depigmentation, and lipodystrophy. I let them know it can take 2 days to 2 weeks to start working and up to 6 weeks to take its full effect. They understand this and gave verbal consent. They tolerated the procedure well. He will return to see me if his symptoms do not improve or they recur. All of his questions were answered, he is in agreement the plan. [email or web address] Not available 12/27/2024 16:34:32 04/08/2025 04/08/2025 IMPRESSION: 74-year-old kgxwh-hngq-ufhatf nt man with bilateral shoulder rotator cuff tear arthropathy PLAN: I discussed the history, clinical examination, and imaging findings with the Patient in detail today. I discussed the treatment options with the patient includin. Living with the symptoms. 2. Continued non-operative management. 3. Surgical intervention. After going over all of their options in detail, my recommendation is to start with a dedicated course of non operative treatment. I explained that the mainstay of initial treatment are things like time, activity modification, relative rest, regular icing, physical therapy with a home exercise program (with a focus on four quadrant stretching, rotator cuff strengthening, periscapular muscle strengthening, and postural retraining), over the counter or prescription strength oral anti-inflammatori es if they can be safely tolerated (may need to discuss with primary care provider), acetaminophen as needed, and topical ointments. A discussion regarding the risks and benefits of a Glenohumeral corticosteroid injection was had with the patient. Risks include but not limited to pain, swelling, bleeding, infection, allergic reaction, elevated blood sugars, incomplete pain relief, tendon injury, bone loss, nerve damage, permanent skin depigmentation, fat atrophy and steroid flare. After reviewing the risks and benefits, patient verbalized understanding of the informed consent and elected to proceed with a corticosteroid injection. Patient tolerated the injection well. Return to clinic in 3 months At the conclusion of the office visit, the patient verbally acknowledged that I answered all of their questions satisfactorily. Not available 04/08/2025 09:41:30 Plan of Treatment Reminders Order Date Submit Date Provider Last Modified By Organization Details Last Modified Time Details Appointments FOLLOW UP 2024 08:45A M Taye Taylor MD Not available Not available Not available Lab None alfonso d. Referral physica l therapi st referra l - 2-3x per week for 12 weeks, Four quadran t Stretch ing, Rotator Cuff Strengt hening Nancy al shoulde r impinge ment, RIGHT supra tear, Left Supra/i nfra tear 2024 025 [email or web address] Not available 12/10/2024 09:00:42 Procedures None recorde d. Surgeries None recorde d. Imaging XR, hand, 3 or more view 2024 025 [facility], [address], [place], [address], 12/30/2024 17:38:23 XR, hand, 3 or more view 2024 025 [facility], [address], [place], [address], 12/30/2024 17:38:23 Medication Orders lidocai ne (PF) 10 mg/mL (1 %) injecti on solutio n 2024 025 Not available 04/09/2025 10:55:12 Marcain e (PF) 0.5 % (5 mg/mL) injecti on solutio n 2024 025 [email or web address] Not available 04/09/2025 10:55:12 triamci nolone acetoni de 40 mg/mL suspens ion for injecti on 2024 025 [email or web address] Not available 04/09/2025 10:55:12 lidocai ne (PF) 10 mg/mL (1 %) injecti on solutio n 2024 025 [id number], [phone] [place], [address], 12/30/2024 17:38:23 triamci nolone acetoni de 40 mg/mL suspens ion for injecti on 2024 025 [id number], [phone] [place], [address], 12/30/2024 17:38:23 lidocai ne (PF) 10 mg/mL (1 %) injecti on solutio n 2024 025 [facility] #[id number], [phone] [place], [address], 12/30/2024 17:38:23 triamci nolone acetoni de 40 mg/mL suspens ion for injecti on 2024 025 [id number], [phone] [place], [address], 12/30/2024 17:38:23 lidocai ne (PF) 10 mg/mL (1 %) injecti on solutio n 2024 025 [email or web address] Not available 12/10/2024 09:03:49 Marcain e (PF) 0.5 % (5 mg/mL) injecti on solutio n 2024 025 Not available 12/10/2024 09:03:49 triamci nolone acetoni de 40 mg/mL suspens ion for injecti on 2024 025 [email or web address] Not available 12/10/2024 09:03:49 lidocai ne (PF) 10 mg/mL (1 %) injecti on solutio n 2024 025 [email or web address] Not available 09/10/2024 09:12:56 Marcain e (PF) 0.5 % (5 mg/mL) injecti on solutio n 2024 025 [email or web address] Not available 09/10/2024 09:12:56 triamci nolone acetoni de 40 mg/mL suspens ion for injecti on 2024 025 [email or web address] Not available 09/10/2024 09:12:57 lidocai ne (PF) 10 mg/mL (1 %) injecti on solutio n [address]/[facility] #[id number], [phone] [place], [address], 06/20/2024 08:58:56 triamci nolone acetoni de 40 mg/mL suspens ion for injecti on [address]/[facility]acy #[id number], [phone] [place], [address], 06/20/2024 08:58:56 Patient TargetsNo targets recorded. Patient Instructions Encounter Date Encounter Id Patient Instructions Last Modified By Organization Details Last Modified Time 06/20/2024 [id number] You have been provided with a cortisone injection in order to reduce the pain and inflammation that you are experiencing. The injection consists of two medications. Cortisone (an anti-inflammatory that will take 48-72 hours to take effect) and Lidocaine (a numbing agent that will last 2-3 hours). Please note that not everyone will have a lasting response following the injection. PATIENT INSTRUCTIONS Once the Lidocaine wears off, you may have an increase in your pain. I recommend icing the affected area for 20 minutes 3-4 times per day. It is recommended that you refrain from any high level activities using the joint or limb that was injected for approximately 24-48 hours. Normal day-to-day activities are generally not a problem. POSSIBLE SIDE EFFECTS Individuals with dark complexions may experience some skin discoloration locally at the site of the injection. There is the possibility of an increase in discomfort within 48 hours following the injection. This is called a anna mccarthy . To help minimize the chances of this, please see the post-injection instructions above. There is a less than 1% chance of an infection. If you notice any signs of infection (redness, warmth, drainage, fever greater than 100 degrees) please call our office or contact us through the portal [facility]. Not available 06/20/2024 08:56:03 12/10/2024 [id number] [facility] Rotator Cuf f Conditioning Not available 12/10/2024 08:57:20 Reason for Referral Physical Therapist Referral for Osteoarthritis of right glenohumeral joint 2-3x per week for 12 weeks, Four quadrant Stretching, Rotator Cuff StrengtheningBilateral shoulder impingement, RIGHT supra tear, Left Supra/infra tear Referring Physician: Lexa Taylor, Orthopedic Surgery, Encounter Date: 12/10/2024 Problems Name Problem SNOMED Code Status Onset Date Resolution Date Notes Provider Name and Address Organization Details Recorded Time Problem 46595785 Active No known active problems Not Available [facility] 5 00:24:33 Full thickness rotator cuff tear 942226913 Active 2017 Complete tear of right rotator cuff Not Available [facility] 5 00:24:31 Chronic pain of left upper limb 03701964406 049718 Active 2017 Chronic left shoulder pain Not Available [facility] 5 00:24:32 Bilateral inflammat ion of shoulder regions Active 2017 Bilateral shoulder region arthritis Not Available [facility] 5 00:24:33 Left lateral elbow tendinopa thy 99984752031 9100 Active 2018 Lateral epicondyl itis of left elbow Not Available [facility] 5 00:24:32 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 Not Available [facility] 5 00:24:33 Impingeme nt syndrome of right shoulder region 51164176683 9102 Active 2022 MANOHAR WHITEHEAD PA-C [address], [place], [address] , [place] [facility] 3 14:08:50 Impingeme nt syndrome of left shoulder region 22967491555 9104 Active 2022 MANOHAR WHITEHEAD PA-C [address], [place], [address] , [place] [facility] 3 14:09:08 Calcific tendiniti s of right shoulder 02314836885 9107 Active 2022 MANOHAR WHITEHEAD PA-C [address], [place], [address] , [place] [facility] 3 13:49:15 Calcific tendiniti s of left shoulder 58052595718 9108 Active 2022 MANOHAR WHITEHEAD PA-C [address], [place], [address] , [place] [facility] 3 13:49:21 Pain of right shoulder joint 87788600937 360101 Active 2022 MANOHAR WHITEHEAD PA-C [address], [place], [address] , [place] [facility] 3 07:54:14 Pain of left shoulder joint 33826409834 805718 Active 2022 MANOHAR WHITEHEAD PA-C [address], [place], [place], [address] , [place] [facility] 3 07:54:14 Prepatell ar bursitis of left knee 13755429478 9103 Active 2022 Gianna Kunz MD [address], [place], [place], [address] , [place] [facility] 3 09:40:17 Osteoarth ritis of right glenohume ral joint 75411712808 42605 Active 2023 Gianna Kunz MD [address], [place], [address] , [place] [facility] 4 17:51:01 Arthritis of left glenohume ral joint 76131642541 43085 Active 2023 Gianna Kunz MD [address], [place], [address] , [place] [facility] 4 17:51:08 Disorder of shoulder 719432538 Active 2024 Lexa Taylor MD [address], [place], [address] , [place] [facility] P 08:56:51 Problem Notes None recorded. Procedures Surgical History Date Name Laterality Status Provider Name and Address Organization Details Recorded Time 04/08/20 25 AJR Shoulder GH Inj completed Lexa Taylor MD [address], [place], [address], [place] [facility] 04/08/2025 09:37:04 12/28/19 25 LES finger joint injection completed Manpreet LOAG [place] [facility] 12/27/2024 15:03:09 12/28/19 25 LES trigger finger/De Quervain's injection completed Manpreet LOAG [place] [facility] 12/27/2024 15:03:17 12/11/19 25 AJR Shoulder GH Inj completed Lexa Taylor MD [address] [facility], [place], [address], [place] [facility] 12/10/2024 09:00:17 09/10/19 25 AJR Shoulder GH Inj completed Lexa Taylor MD [address], [place], [address], [place] [facility] 09/10/2024 09:08:15 06/20/20 24 LES Shoulder Interarticular Inj completed Gianna Kunz MD [address] [facility], [place], [address], [place] [facility] 06/20/2024 08:55:54 04/04/20 24 LES Subacromial Shoulder Inj completed Gianna Kunz MD [address], [place], [address], [place] [facility] 04/04/2024 09:02:01 12/28/19 24 LES Subacromial Shoulder Inj completed Gianna Kunz MD [address], [place], [address], [place] [facility] 01/02/2024 17:50:02 09/28/19 24 Shoulder Joint/Bursa Asp & Inj completed MANOHAR WHITEHEAD PA-C [address], [place], [address], [place] [facility] 09/28/2023 08:31:18 06/27/20 23 Shoulder Joint/Bursa Asp & Inj completed MANOHAR WHITEHEAD PA-C [address], [place], [address], [place] [facility] 06/27/2023 07:39:52 03/15/20 23 Shoulder Joint/Bursa Asp & Inj completed MANOHAR WHITEHEAD PA-C [address], [place], [address], [place] [facility] 03/15/2023 07:54:57 12/15/19 23 Shoulder Joint/Bursa Asp & Inj completed MANOHAR WHITEHEAD PA-C [address], [place], [address], [place] [facility] 12/15/2022 13:49:01 cholecystostomy completed Bessy Juarez [facility] 12/14/2022 13:42:43 procedure on gallbladder completed [facility] [place] [facility] 03/15/2023 08:51:20 procedure on foot completed [facility] 03/15/2023 08:51:27 Imaging Results None recorded. Procedure Notes None recorded. Medical Equipment None Reported. Allergies Allergen ID Allergen Name Allergen Category Reaction Reaction Severity Criticality Documentation Date Start Date Code Code System Note Provider Name and Address Organization Details Recorded Time 3773 azithromy mercedes medicatio n Not available Not available Not available 12/14/2022 00940 RxNorm Bessy Juarez null, [facility] 13:41:36 3774 ciproflox acin medicatio n Not available Not available Not available 12/14/2022 2551 RxNorm Bessy Juarez null, [facility] 13:41:42 Medications Name Sig Start Date Stop Date Status Note LastModified by Organization Details LastModified Time losartan 50 mg tablet TAKE 1 TABLET BY MOUTH EVERY DAY 09/28 completed Not Available Not Available Not Available celecoxib 200 mg capsule TAKE 1 CAPSULE BY MOUTH EVERY DAY 12/27 completed Not Available Not Available Not Available furosemide 40 mg tablet TAKE 1 TABLET BY MOUTH TWO TIMES A DAY 12/27 completed Not Available Not Available Not Available atorvastati n 80 mg tablet Take 1 tablet (80 mg total) by mouth daily. active Not Available Not Available No t Available potassium chloride ER 10 mEq capsule,ext ended release TAKE 1 CAPSULE BY MOUTH TWO TIMES A DAY 04/04 completed Not Available Not Available Not Available amiodarone 200 mg tablet TAKE 1 TABLET BY MOUTH TWO TIMES A DAY 12/27 completed Not Available Not Available Not Available benzonatate 200 mg capsule TAKE 1 CAPSULE BY MOUTH THREE TIMES A DAY NEEDED FOR COUGH FOR 5 DAYS active Not Available Not Available No t Available meloxicam 15 mg tablet TAKE 1 TABLET BY MOUTH EVERY DAY WITH MEALS FOR 7 DAYS 12/27 completed Not Available Not Available Not Available prednisone 20 mg tablet TAKE 3 TABLETS BY MOUTH DAILY X 2 DAYS, 2 TABLETS DAILY X 2 DAYS, THEN 1 TABLET DAILY X 2 DAYS 12/10 completed Not Available Not Available Not Available valsartan 80 mg tablet TAKE 1 TABLET BY MOUTH 1 TIME EACH DAY. active Not Available Not Available No t Available fluocinonid e 0.05 % topical ointment APPLY TO ARMS, TRUNK, AND LEGS 2 TIMES A DAY NEEDED FOR FLARES active Not Available Not Available No t Available aspirin 81 mg tablet,ben yed release Take 1 tablet (81 mg total) by mouth daily. active Not Available Not Available No t Available sildenafil 100 mg tablet TAKE ONE TABLET BY MOUTH EVERY DAY NEEDED FOR SEXUAL ACTIVITY 30 MINUTES TO 4 HOURS BEFORE ACTIVITY active Not Available Not Available No t Available simvastatin 40 mg tablet Take 1 tablet (40 mg total) by mouth every night at bedtime. active Not Available Not Available No t Available cyanocobala min (vit B-12) 500 mcg tablet Take 2 tablets (1,000 mcg total) by mouth daily. active Not Available Not Available No t Available triamcinolo ne acetonide 40 mg/mL suspension for injection Take 160 mg by injection route. 2024 active Not Available Not Available Not Avai lable cephalexin 500 mg capsule TAKE 2 CAPSULES EVERY 12 HOURS BY ORAL ROUTE DIRECTED FOR 7 DAYS, FOR HAND SKIN INFECTION . 09/10 completed Not Available Not Available Not Available methylpredn isolone acetate 40 mg/mL suspension for injection 09/06 completed Not Available Not Available Not Available tacrolimus 0.1 % topical ointment APPLY TO ARMS, TRUNK, AND LEGS TWICE DAILY, ALTERNATI NG WITH TOPICAL STEROIDS active Not Available Not Available No t Available polymyxin B sulfate 10,000 unit-trimet hoprim 1 mg/mL eye drops INSTILL 1 DROP 4 TIMES A DAY FOR 7 DAYS 12/27 completed Not Available Not Available Not Available losartan 25 mg tablet Take 25 mg by mouth daily. 12/23 completed Not Available Not Available Not Available cephalexin 500 mg tablet TAKE 1 TABLET BY MOUTH THREE TIMES A DAY FOR 7 DAYS 09/10 completed Not Available Not Available Not Available folic acid 1 mg tablet Take 1 tablet (1 mg total) by mouth daily. active Not Available Not Available No t Available mupirocin 2 % topical ointment APPLY TOPICALLY TO BOTH NOSTRILS EVERY 12 HOURS FOR 2 DAYS 12/27 completed Not Available Not Available Not Available furosemide 20 mg tablet TAKE 1 TABLET BY MOUTH 1 (ONE) TIME EACH DAY IF NEEDED (FOR INCREASED LEG SWELLING OR WEIGHT GAIN). active Not Available Not Available No t Available metoprolol succinate ER 25 mg tablet,exte nded release 24 hr TAKE 1 TABLET BY MOUTH 1 TIME EACH DAY. active Not Available Not Available No t Available methylpredn isolone 4 mg tablets in a dose pack TAKE 6 TABLETS ON DAY 1 DIRECTED ON PACKAGE AND DECREASE BY 1 TAB EACH DAY FOR A TOTAL OF 6 DAYS 09/28 completed Not Available Not Available Not Available ipratropium bromide 42 mcg (0.06 %) nasal spray SPRAY ONCE IN EACH NOSTRIL TWICE A DAY 04/04 completed Not Available Not Available Not Available colchicine 0.6 mg tablet Take 0.6 mg by mouth daily. 12/23 completed Not Available Not Available Not Available amoxicillin 875 mg-potassiu m clavulanate 125 mg tablet TAKE 1 TABLET BY MOUTH TWICE A DAY FOR 7 DAYS 12/10 completed Not Available Not Available Not Available valsartan 160 mg tablet TAKE 1 TABLET BY MOUTH EVERY DAY. PLEASE D/C LOSARTAN 09/28 completed Not Available Not Available Not Available Marcaine (PF) 0.5 % (5 mg/mL) injection solution Take 8 mL by injection route. 2024 active Not Available Not Available Not Avai lable metoprolol tartrate 25 mg tablet TAKE 1/2 (HALF) TABLET BY MOUTH TWO TIMES A DAY 04/04 completed Not Available Not Available Not Available B-12 active Not Available Not Availa ble Not Available lidocaine (PF) 10 mg/mL (1 %) injection solution Take 8 mL by injection route. 2024 active Not Available Not Available Not Avai lable GaviLyte-G 236 gram-22.74 gram-6.74 gram-5.86 gram oral solution 04/04 completed Not Available Not Available Not Available lidocaine (PF) 100 mg/5 mL (2 %) injection syringe Take 2 mL by injection route. 09/28 completed Not Available Not Available Not Available Paxlovid 300 mg (150 mg x 2)-100 mg tablets in a dose pack TAKE 3 TABLETS BY MOUTH TWICE A DAY FOR 5 DAYS 12/27 completed Not Available Not Available Not Available Vitals Date Recorded Body height Provider Name an d Address Organization Details Last Updated DateTime 09/10/2024 187.96 cm Laurita Anderson [place] - [facility] 09/10/2024 08:31:29 Date Recorded Body height Provider Name an d Address Organization Details Last Updated DateTime 12/27/2024 187.96 cm Manpreet Kaiser [place] - [facility] 12/27/2024 14:41:44 Social History None recorded. Functional Status Question Answer Note LastModified by Organizat ion Details LastModified Time How many times per week do you consume alcohol? 1-2 times per week Information not available 03/15/2023 Do you use any illicit or recreational drugs? No Information not available 03/15/2023 Do you or have you ever used any other forms of tobacco or nicotine? No Information not available 03/15/2023 What is your level of alcohol consumption? Occasional Information not available 03/15/2023 Mental Status None recorded. Family History Nothing Reported. Medical History Condition Response Coronary Artery Disease N Gout Y Hyperthyroidism N MRSA N Blood Transfusion N Emphysema N Hypothyroidism N Depression N COPD N Pacemaker N Vascular Disease N Gastrointestinal Disease N Anxiety Disorder N Autoimmune disease N Arthritis N Cancer N Stroke N High Cholesterol N Neurologic Disorder N Liver Disease N Organ Transplant N Rheumatoid Arthritis N Arrhythmia N Fibromyalgia N Kidney Disease N Allergies/Hayfever N Adverse Reaction to Anesthesia N Thyroid Problems N Anemia N Brain Injury N Heart Attack (CO) N Osteopenia N Diabetes N Bleeding Disorder N Seizures/Epilepsy N AIDS/HIV N Congestive Heart Failure (CHF) N Asthma N Amputation N Reflux/GERD N Sleep Apnea N Hepatitis N Aneurysm N Heart Disease N Pulmonary Embolism N Hypertension N Osteoporosis N Past Encounters Encounter ID Performer Location Encounter Start Date Encounter Closed Date Diagnosis/Indication Diagnosis SNOMED-CT Code Diagnosis ICD10 Code Diagnosis IMO Codes Diagnosis Note [id number] FELTON CORTES [facility] [address] [address] 12/14/2022 13:12:21 12/14/2022 14:12:48 Pain of right shoulder joint [id number] 4223096 M25.511 Pain of le ft shoulder joint 6480317816 8650182 M25.512 Impingemen t syndrome of right shoulder region 8667412008 11214 M75.41 Impingemen t syndrome of left shoulder region 1961571008 29565 M75.42 Calcific t endinitis of right shoulder 3648432075 43914 M75.31 Calcific t endinitis of left shoulder 6229761476 89374 M75.32 [id number] FELTON CORTES [facility] [address] [address] 03/15/2023 08:39:15 03/15/2023 09:07:23 Impingement syndrome of right shoulder region 2612125592 40101 M75.41 Impingemen t syndrome of left shoulder region 9925924614 56554 M75.42 Calcific t endinitis of right shoulder 4536334919 20643 M75.31 Calcific t endinitis of left shoulder 1969900413 28841 M75.32 [id number] FELTON THOMPSON [facility] [address] [address] 05/02/2023 08:28:36 05/02/2023 09:07:13 Pain of left knee joint 9206569070 31179 M25.562 [id number] MD TC [facility] [address] [address] 05/10/2023 09:11:10 05/10/2023 09:25:32 Prepatellar bursitis of left knee 4994663403 94597 M70.42 [id number] FELTON CORTES [facility] [address] [place] [address] 06/27/2023 08:37:43 06/27/2023 08:57:45 Calcific tendinitis of right shoulder 4691223041 60874 M75.31 Impingemen t syndrome of right shoulder region 4150452216 88720 M75.41 Calcific t endinitis of left shoulder 7104654248 90276 M75.32 Impingemen t syndrome of left shoulder region 9458320523 81118 M75.42 [id number] FELTON CORTES [facility] [address] [address] 09/28/2023 08:16:30 09/28/2023 09:05:42 Pain of left shoulder joint 6433740369 8902296 M25.512 Pain of ri ght shoulder joint 4398144258 4770223 M25.511 Calcific t endinitis of right shoulder 2884920001 08452 M75.31 Impingemen t syndrome of right shoulder region 6381087048 98781 M75.41 Calcific t endinitis of left shoulder 6498826571 82803 M75.32 Impingemen t syndrome of left shoulder region 4626139271 22149 M75.42 [id number] MD TC Alexander [facility] [address] [address] 12/28/2023 08:14:18 12/28/2023 09:21:48 Calcific tendinitis of left shoulder 6417993896 39922 M75.32 M75.31 Additional diagnosis detail: Calcific tendinitis of right shoulder Osteoarthr itis of right glenohumeral joint 2667335802 010675 M19.011 Additional diagnosis detail: Glenohumer al arthritis, right Arthritis of left glenohumeral joint 8635972953 217826 M19.012 Additional diagnosis detail: Glenohumer al arthritis, left [id number] [facility] 299 [facility] [address] [place] [address] 04/04/2024 08:19:26 04/04/2024 08:51:53 Calcific tendinitis of left shoulder 9705357144 52022 M75.32 M75.31 Additional diagnosis detail: Calcific tendinitis of right shoulder Osteoarthr itis of right glenohumeral joint 7073079823 963099 M19.011 Additional diagnosis detail: Glenohumer al arthritis, right [id number] MD TC Alexander [facility] 299 [facility] [address] [place] [address] 06/20/2024 08:17:18 06/20/2024 08:55:54 Osteoarthritis of right glenohumeral joint 8467028547 630327 M19.011 Additional diagnosis detail: Glenohumer al arthritis, right Arthritis of left glenohumeral joint 8348821840 955955 M19.012 Additional diagnosis detail: Glenohumer al arthritis, left Impingemen t syndrome of right shoulder region 7894160124 29434 M75.41 Impingemen t syndrome of left shoulder region 2138303765 96133 M75.42 [id number] MD TC Maguire [facility] 299 [facility] [address] [place] [address] 09/10/2024 08:20:47 09/10/2024 09:07:15 Osteoarthritis of right glenohumeral joint 4881233604 729032 M19.011 Arthritis of left glenohumeral joint 4489059287 939541 M19.012 [id number] MD TC Maguire [facility] 299 [facility] [address] [place] [address] 12/10/2024 08:22:18 12/10/2024 09:00:41 Osteoarthritis of right glenohumeral joint 9881875715 883126 M19.011 Arthritis of left glenohumeral joint 6742157374 233756 M19.012 [id number] MD TC Alexander [facility] [address] [facility] [address] [place] [address] 12/27/2024 14:08:01 12/27/2024 15:08:22 Pain of bilateral hands 3288942793 9009175 M79.641 M79.642 [id number] Osteoarthr itis of finger joint of right hand 9797537032 2347749 M15.2 8214534844 Triggering of digit 2399 36016 M65.381 [id number] MD TC Maguire [facility] 299 [facility] [address] [place] [address] 04/08/2025 08:32:13 04/08/2025 09:25:13 Osteoarthritis of right glenohumeral joint 8975007769 265923 M19.011 Arthritis of left glenohumeral joint 1404584734 593232 M19.012 Health Concerns Section Related Observation LastModified by Organization Detai ls LastModified Time None Recorded Concern Status LastModified by Organization Details LastModified Time None Recorded Advance Directives Directive None Recorded Payers Insurance Date Sequence Insurance Name Policy Number Policy Gee Covered Member ID Gee Member ID Guarantor Name 04/07/2025 1 MEDICARE [place]: [employer] Porfirio T Diciocco [id number] Porfirio T Diciocco 04/07/2025 2 [facility] (INDEMNITY) [id number] 2 Porfirio T Diciocco [id number] Porfirio T Diciocco Notes Date Note Type Note Provider Name and Address Organization Details Recorded Time 06/20/2024 text/html ROS as noted in the HPI He presents for follow-up bilateral shoulder glenohumeral joint arthritis and calcific tendinitis. He is status post bilateral cortisone injections into his shoulders on 04/04/2024. He states this helped for about 10 weeks however pain has recurred. He has not done anything for treatment. He notes pain symmetric in both shoulders. This is worse with activity and at night when he is trying to sleep. Gianna Kunz MD 299 [facility] [address], [place], [address], [employer] - [facility] 06/20/2024 08:58:49 09/10/2024 text/html ROS as noted in the HPI 74-year-old zslgo-khsm-zpfgimdf man with bilateral shoulder pain for several years. He has been previously seen by Dr. Kunz for which she received injections back in June 2024. Left worse than right. He rates his right shoulder at best 2 out of 10 and at worst 9 out of 10. SANE score 90% He rates his left shoulder 2 out of 10 at best and at worst 9 out of 10. SANE score 90% He works for the [employer] for 34 years recently retired. Lexa Taylor MD [address] [address], [place], [address], [facility] - [facility] 09/10/2024 09:10:28 12/10/2024 text/html ROS as noted in the HPI Patient returns today for evaluation regarding bilateral shoulder pain. Likely has a component of rotator cuff tear arthropathy bilateral shoulders left worse than right. Previously had injections last September they lasted around 10 to 11 weeks. Otherwise has been doing well. He is interested in talking about treatment options. PRIOR AR [id number]-year-old yoszs-fejc-mzdqogkt man with bilateral shoulder pain for several years. He has been previously seen by Dr. Kunz for which she received injections back in June 2024. Left worse than right. He rates his right shoulder at best 2 out of 10 and at worst 9 out of 10. SANE score 90%He rates his left shoulder 2 out of 10 at best and at worst 9 out of 10. SANE score 90% He works for the [employer] for 34 years recently retired. Lexa Taylor MD 299 [facility] [address], [place], [address], [facility] - [facility] 12/10/2024 09:00:46 12/27/2024 text/html ROS as noted in the HPI This is a 74-year-old trwut-vnnc-tecnwcyf male who presents today with a new problem of a right small finger trigger finger and right middle finger PIP joint pain and stiffness. The trigger finger has been going on for about 2 or 3 months. The middle finger PIP joint has been a chronic problem, he has had injections into this finger before with resolution of symptoms. Gianna Kunz MD [address], [place], [address], [place] - [facility] 12/27/2024 16:35:13 04/08/2025 text/html ROS as noted in the HPI Patient returns to the office today. He felt the injections helped him but started to bother him he got approximately 3-1/2 months of relief. He is interested in discussing treatment option PRIOR AR [id number] returns today for evaluation regarding bilateral shoulder pain. Likely has a component of rotator cuff tear arthropathy bilateral shoulders left worse than right. Previously had injections last September they lasted around 10 to 11 weeks. Otherwise has been doing well. He is interested in talking about treatment options. PRIOR AR [id number]-year-old aorku-xvsf-lxmvhmbg man with bilateral shoulder pain for several years. He has been previously seen by Dr. Kunz for which she received injections back in June 2024. Left worse than right. He rates his right shoulder at best 2 out of 10 and at worst 9 out of 10. SANE score 90%He rates his left shoulder 2 out of 10 at best and at worst 9 out of 10. SANE score 90% He works for the [employer] for 34 years recently retired. Lexa Taylor MD [address] [place] [address], [place], [address], [place] - [facility] 04/08/2025 09:42:29
--- OUTSIDE RECORDS SUMMARY | 2025-06-12 10:15 | XMS_ITS | Clinical Summary ---
Author Organization [facility] Address [address] [place] [address] Care Team Providers Care Whitesmith Name Role Phone Mary Castillo MD Primary Care Provider [phone] Allergies Active Allergy Reactions Criticality Noted Date Comments Azithromycin Rash Low 04/21/2017 Ciprofloxacin Rash Low 03/30/2017 Medications Medication Sig Dispensed Refills Start Date End Date Status Multiple Vitamin (MULTI VITAMIN PO) Take by mouth. 0 Ac tive simvastatin (ZOCOR) tablet 40 mg Take 1 tablet (40 mg total) by mouth every night at bedtime. 0 Active aspirin EC 81 MG tablet Take 1 tablet (81 mg total) by mouth daily. 0 Active folic acid (FOLVITE) tablet 1 mg Take 1 tablet (1 mg total) by mouth daily. 0 Active vitamin B-12 (CYANOCOBALAMIN) 500 MCG tablet Take 2 tablets (1,000 mcg total) by mouth daily. 0 Active sildenafil (VIAGRA) 100 MG tablet Take 1 tablet (100 mg total) by mouth daily as needed. 3 01/10/2018 Active Calcium Carbonate (CALCIUM 600 PO) Take by mouth 2 (two) times a day. 0 Active losartan (COZAAR) tablet 50 mg Take 1 tablet (50 mg total) by mouth daily. 0 09/21/2021 Active metoprolol succinate (TOPROL-XL) 24 hr tablet 25 mg Take 1 tablet (25 mg total) by mouth daily. 0 07/17/2023 Active atorvastatin (LIPITOR) tablet 80 mg Take 1 tablet (80 mg total) by mouth daily. 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 Lateral epicondylitis of left elbow 07/19/2019 Shoulder impingement syndrome, left 02/12/2019 Shoulder impingement, right 02/12/2019 Bilateral shoulder region arthritis 04/17/2018 Complete tear of right rotator cuff 09/12/2017 Chronic left shoulder pain 09/12/2017 Social History Tobacco Use Types Packs/Day Years Used Date Smoking Tobacco: Never Smokeless Tobacco: Never Alcohol Use Standard Drinks/Week Comments No 0 (1 standard drink = 0.6 oz pur e alcohol) Sex and Gender Information Value Date Recorded Sex Assigned at Male 01/31/2022 4:44 PM EDT Gender Identity Not on file Sexual Orientation Not on file Job Start Date Occupation Industry Not on file Not on file Not on file Last Filed Vital Signs Vital Sign Reading Time Taken Comments Blood Pressure 123/67 01/12/2024 9:01 AM EDT Pulse 65 01/12/2024 9:01 AM EDT Temperature 36.3 C (97.4 F) 01/12/2024 9:01 AM EDT Respiratory Rate 18 07/24/2023 9:24 AM EST Oxygen Saturation 100% 01/12/2024 9:01 AM EDT Inhaled Oxygen Concentration - - Weight 85.7 kg (189 lb) 01/12/2024 9:01 AM EDT Height 188 cm (6' 2 ) 01/12/2024 9:01 AM EDT Body Mass Index 24.27 01/12/2024 9:01 AM EDT Plan of Treatment Health Maintenance Due Date Last Done Comments Hepatitis C Screening 1950 COVID-19 Vaccine (#1) 1949 Depression Screening 1961 Preventative Health Evaluation 1967 DTap / Tdap / Td (1 - Tdap) 1968 Colon Cancer Screening (Colonoscopy) 1994 Shingrix-Zoster Vaccine (1 o f 2) 1999 Fall Risk Assessment 2014 RSV Adult > 60+ Yrs or (1 - 1-dose 75+ series) 2024 Influenza Vaccine (#1) 2025 04/19/2017 Pneumococcal Vaccine Completed 06/16/2016, 10/16/2014 Hepatitis B Vaccines Aged Out No long er eligible based on patient's age to complete this topic RSV Ped < 20 months Aged Out No longe r eligible based on patient's age to complete this topic Care Teams Whitesmith Relationship Specialty Start Date End Date Mary Castillo MD [address] [address] PCP - General Internal Medicine 03/27/17
[2025-06-12 11:11] LABS: Prostate Specific Antigen 1.18 ng/mL (<0.05-4.0)
== END 2025-06-12 09:18 | disposition home or self-care (01) ==
LOC: HO.10HDL 09:17
PROVIDERS: Visit Provider Urology
DX: R97.20 Elevated prostate specific antigen [PSA] (principal); Z12.5 Encounter for screening for malignant neoplasm of prostate
CPT/HCPCS: 36415; 84153

== ENCOUNTER 2025-06-20 08:20 | Outpatient (AMB) | payer MEDICARE, OTHER, SELFPAY ==
--- NOTE | 2025-06-20 08:25 | A.OFFVIS_ITS ---
Intake Visit Reasons: 1Y PSA Intake Note: Patient is present for PSA Urology Med: Sildenafil Antibiotic Allergy: Azithromycin, Cipro Blood Thinner: Aspirin 06/12/2025 PSA 1.18 Accompanied by: Self / Same As Patient Allergies azithromycin Allergy (Unknown, Verified 06/20/25 08:29) Unknown ciprofloxacin (Cipro) Allergy (Unknown, Verified 06/20/25 08:29) Unknown Dust Allergy (Unknown, Uncoded 06/20/25 08:29) Unknown Mold Allergy (Unknown, Uncoded 06/20/25 08:29) Unknown HPI Comments Details: Porfirio Armstrong is a very pleasant male. He is a patient of Dr Castillo. He is seen in the office today for the following urologic conditions. - erectile dysfunction Yearly follow-up Stable urinary parameter. Minimal urge, effective stream, complete emptying. PSA remains in range Continues with good response to sildenafil on demand Erectile dysfunction: Continue good response to intermittent medications He presents today for for continued evaluation and management of erectile dysfunction. Symptoms have been present for/since years ago. Current treament includes Viagra/sildenafil. Treatment side effects include none. Prior therapies include oral medications. At this time he experiences erections are full, rigid and adequate for vaginal penetration. Nocturnal erections do occur. Currently they are in a stable relationship. Recent labs included a PSA (prostate-specific antigen) November 2014 0.9, January 2017 1.4, 01/24 1.4, 01/25 1.5, 01/26 1.4, 06/30 1.2, 07/01 1.2 Overall he is satisfied with the current management. Therapeutic plan includes maintaining current therapy - Rx will be provided. [facility] Medical History Allergic rhinitis Erectile dysfunction Review of Systems Const Denies chills and Denies fever(s) Card Reports no additional complaints and Denies syncope Resp Denies cough GI Denies abdominal pain and Denies heartburn Reports as per HPI and Denies change in libido Neuro Denies syncope Psych Denies change in libido Endo Denies change in libido Physical Exam Const General: cooperative, healthy appearing, comfortable and no acute distress Orientation/consciousness: patient oriented x3 HEENT Face and sinus: Yes normal facial exam Mouth: moist mucous membranes Neck Neck: Yes normal visual inspection, Yes full ROM and Yes trachea midline Chest Chest palpation & inspection: normal inspection of the chest Resp Effort & Inspection: normal respiratory effort, able to speak in complete sentences and no respiratory distress GI Inspection: Yes normal to inspection Back/Spine/Pelvis Cervical Spine: normal cervical lordosis Thoracic/Lumbar Spine: thoracic and lumbar spine normal to inspection Skin General skin exam: no rashes or lesions noted Neuro General: patient oriented x3, gait normal, tone normal and moves all extremities Extrem General: Yes normal to inspection and Yes capillary refill normal Assessment & Plan Assessment & Plan (1) Elevated PSA: Code(s): R97.20 - Elevated prostate specific antigen [PSA] Category: Medical (2) Erectile dysfunction: Code(s): N52.9 - Male erectile dysfunction, unspecified Category: Medical Plan Follow-up 12 month Orders: Orders Prostate Specific Antigen 06/12/25 R97.20 - Elevated prostate specific antigen [PSA] Medications: Changed From sildenafil administer 30 minutes to 4 hours before activity 100 mg PO DAILY 90 days PRN 30 tabs 3RF sexual activity N52.9 - Male erectile dysfunction, unspecified To sildenafil administer 30 minutes to 4 hours before activity 100 mg PO ONCE PRN 30 tabs 3RF sexual activity 90 days N52.9 - Male erectile dysfunction, unspecified Patient Instructions: This note is constructed using voice recognition software. While every effort has been made to ensure accuracy oil heater installer errors may have been included. Imaging studies, laboratory and physical exam results were discussed and reviewed in detail. No major barriers to patient understanding were identified. An opportunity to ask questions regarding the treatment plan was provided. All questions were answered. The patient expressed understanding and agreement with the above treatment plan. The patient is aware they should contact our office by phone for worsening of their current condition or the appearance of new urologic symptoms. Compliance is encouraged with any medications and followup testing that is ordered. It is a privilege to participate in the urologic care of your patient. If you have any questions or concerns regarding treatment for the above conditions, or other urologic issues, please do not hesitate to contact me. The office telephone contact is [phone]. Sincerely, Dr Lexa Soto MD, [facility] - Urology Compassionate Specialist Care for the Genitourinary System Coding Level of Care Code Est Pt Level 4 (23417) Complex EM visit Add On G2211 Diagnoses Elevated PSA R97.20 Erectile dysfunction N52.9
--- OUTSIDE RECORDS SUMMARY | 2025-06-20 08:32 | XMS_ITS | Clinical Summary ---
Author Organization [facility] Address [address] [place] [address] Care Team Providers Care Motion Picture Set Worker Name Role Phone Mary Castillo MD Primary Care Provider [phone] Allergies Active Allergy Reactions Criticality Noted Date [...] age to complete this topic Care Teams Motion Picture Set Worker Relationship Specialty Start Date End Date Mary Castillo MD [address] [address] PCP - General Internal Medicine 03/27/17
--- OUTSIDE RECORDS SUMMARY | 2025-06-20 08:32 | XMS_ITS | Continuity of Care Document ---
Author Organization [place] [facility] Stevie Orozco AONE [place] Address [address] [facility] G[address] te [address] [place] [phone] Care Team Providers [facility] Manager Name Role Phone STEVEN PEPPER Referring Provider [phone] STEVEN PEPPER Primary Care Provider Assessment Encounter Date Assessment Date Assessment LastModified by Organization Details LastModified Time 04/08/2025 04/08/2025 IMPRESSION: 74-year-old [id number] nt man with bilateral shoulder rotator cuff [...] I answered all of their questions satisfactorily. [email or web address] Not available 04/08/2025 09:41:30 Plan of Treatment Reminders Order Date Submit Date Provider Last Modified By Organization Details Last Modified Time Details Appointments FOLLOW UP 2024 08:45A M Taye Taylor MD Not available Not available Not available Lab None recorded. Referral None recorded. Procedures None recorded. Surgeries None recorded. Imaging None recorded. Medication Orders lidocaine (PF) 10 mg/mL (1 %) injection solution 2024 025 [id number] Not available 04/09/2025 10:55:12 Marcaine (PF) 0.5 % (5 mg/mL) injection solution 2024 025 [email or web address] Not available 04/09/2025 10:55:12 triamcino lone acetonide 40 mg/mL suspensio n for injection 2024 025 [email or web address] Not available 04/09/2025 10:55:12 Patient TargetsNo targets recorded. Patient InstructionsNo instructions recorded. Reason for Referral None Reported. Problems Name Problem SNOMED Code Status Onset Date Resolution Date Notes Provider Name and Address Organization Details Recorded Time Problem 57244265 Active No known active problems Not Available [facility] 5 00:24:33 Full thickness rotator cuff tear 027477741 Active 2017 Complete tear of right rotator cuff Not Available [facility] 5 00:24:31 Chronic pain of left upper limb 35041443927 710538 Active 2017 Chronic left shoulder pain Not Available [facility] 5 00:24:32 Bilateral inflammat ion of shoulder regions Active 2017 Bilateral shoulder region arthritis Not Available [facility] 5 00:24:33 Left lateral elbow tendinopa thy 25451097173 9100 Active 2018 Lateral epicondyl itis of left elbow Not Available [facility] 5 00:24:32 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 Not Available [facility] 5 00:24:33 Impingeme nt syndrome of right shoulder region 15667993219 9102 Active 2022 MANOHAR WHITEHEAD PA-C [address], [place], [address] , [place] [facility] [place] 3 14:08:50 Impingeme nt syndrome of left shoulder region 80641079012 9104 Active 2022 MANOHAR WHITEHEAD PA-C [address], [place], [place], [address] , [place] [facility] [place] 3 14:09:08 Calcific tendiniti s of right shoulder 80991092009 9107 Active 2022 MANOHAR WHITEHEAD PA-C [address], [place], [place], [address] , [place] [facility] [place] 3 13:49:15 Calcific tendiniti s of left shoulder 80826514558 9108 Active 2022 MANOHAR WHITEHEAD PA-C [address], [place], [address] , [place] [facility] 3 13:49:21 Pain of right shoulder joint 87022180412 953020 Active 2022 MANOHAR WHITEHEAD PA-C [address], [place], [place], [address] , [place] [facility] 3 07:54:14 Pain of left shoulder joint 32178447130 909751 Active 2022 MANOHAR WHITEHEAD PA-C [address], [place], [place], [address] , [place] [facility] 3 07:54:14 Prepatell ar bursitis of left knee 05049698880 9103 Active 2022 Gianna Kunz MD [address], [place], [address] , [place] [facility] 3 09:40:17 Osteoarth ritis of right glenohume ral joint 67125028327 39090 Active 2023 Gianna Kunz MD [address], [place], [address] , [place] [facility] [place] 4 17:51:01 Arthritis of left glenohume ral joint 85984178086 Active 2023 Gianna Kunz MD [address], [place], [address] , [place] [facility] 4 17:51:08 Disorder of shoulder 679937635 Active 2024 Lxea Taylor MD [address], [place], [address] , [place] [facility] 5 08:56:51 Problem Notes None recorded. Procedures Surgical History Date Name Laterality Status Provider Name and Address Organization Details Recorded Time 04/08/20 25 AJR Shoulder GH Inj completed Lexa Taylor MD [address], [place], [address], [place] [facility] 04/08/2025 09:37:04 12/28/19 25 LES finger joint injection completed Manpreet Kaiser [facility] [place] 12/27/2024 15:03:09 12/28/19 25 LES trigger finger/De Quervain's injection completed Manpreet Kaiser [place] [facility] [place] 12/27/2024 15:03:17 12/11/19 25 AJR Shoulder GH Inj completed Lexa Taylor MD [address], [place], [address], [place] [facility] 12/10/2024 09:00:17 09/10/19 25 AJR Shoulder GH Inj completed Lexa Taylor MD [address], [place], [address], [place] [facility] 09/10/2024 09:08:15 06/20/20 24 LES Shoulder Interarticular Inj completed Gianna Kunz MD [address], [place], [address], [place] [facility] 06/20/2024 08:55:54 04/04/20 24 LES Subacromial Shoulder Inj completed Gianna Kunz MD [address], [place], [address], [place] [facility] 04/04/2024 09:02:01 12/28/19 24 LES Subacromial Shoulder Inj completed Gianna Kunz MD [address], [place], [address], [place] [facility] 01/02/2024 17:50:02 09/28/19 24 Shoulder Joint/Bursa Asp & Inj completed MANOHAR WHITEHEAD PA-C [address], [place], [address], [place] [facility] 09/28/2023 08:31:18 06/27/20 23 Shoulder Joint/Bursa Asp & Inj completed MANOHAR WHITEHEAD PA-C [address], [place], [address], [place] [facility] 06/27/2023 07:39:52 03/15/20 23 Shoulder Joint/Bursa Asp & Inj completed MANOHAR WHITEHEAD PA-C [address], [place], [address], [place] [facility] 03/15/2023 07:54:57 12/15/19 23 Shoulder Joint/Bursa Asp & Inj completed MANOHAR WHITEHEAD PA-C [address], [place], [address], [place] [facility] 12/15/2022 13:49:01 cholecystostomy completed Bessy Juarez [facility] 12/14/2022 13:42:43 procedure on gallbladder completed Melissa Duke [facility] 03/15/2023 08:51:20 procedure on foot completed Melissa Duke [facility] 03/15/2023 08:51:27 Imaging Results None recorded. Procedure Notes None recorded. Medical Equipment None Reported. Allergies Allergen ID Allergen Name Allergen Category Reaction Reaction Severity Criticality Documentation Date Start Date Code Code System Note Provider Name and Address Organization Details Recorded Time 377 azithromy mercedes medicatio n Not available Not available Not available 12/14/2022 23413 RxNorm Bessy Juarez null, [place] [facility] 3 13:41:36 3774 ciproflox acin medicatio n Not available Not available Not available 12/14/2022 2551 RxNorm Bessy Juarez null, [place] [facility] 3 13:41:42 Medications Name Sig Start Date Stop [...] Not Available Not Available Not Available Vitals None Recorded Social History None recorded. Functional Status Question [...] Blood Transfusion N Emphysema N Hypothyroidism N COPD N Depression N Pacemaker N Vascular Disease N Gastrointestinal Disease N Anxiety Disorder N Autoimmune disease N Arthritis N Cancer N Stroke N High Cholesterol N Neurologic Disorder N Liver Disease N Organ Transplant N Arrhythmia N Rheumatoid Arthritis N Fibromyalgia N Kidney Disease N Allergies/Hayfever N Adverse Reaction to Anesthesia N Thyroid Problems N Anemia N Brain Injury N Heart Attack ([place]) N Osteopenia N Diabetes N Bleeding Disorder [...] ICD10 Code Diagnosis IMO Codes Diagnosis Note [id number] MD TC Maguire [address] [address] 04/08/2025 08:32:13 04/08/2025 09:25:13 Osteoarthritis of right glenohumeral joint [id number] 289993 M19.011 Arthritis of left glenohumeral joint 6269545404 127352 M19.012 Health Concerns Section Related Observation LastModified by Organization Detai ls LastModified Time None Recorded Concern Status LastModified by Organization Details LastModified Time None Recorded Payers Encounter Date Sequence Insurance Name Policy Number Policy Gee Covered Member ID Gee Member ID Guarantor Name 04/08/2025 1 MEDICARE [place]: [employer] Porfirio Ann Balbuenaiocco [id number] Porfirio T Diciocco 04/08/2025 2 [facility] [place] [employer]INDEMNITY) [id number] 2 Porfirio T Diciocco [id number] Porfirio Juarez Dicioccemilie Notes Date Note Type Note Provider Name and Address Organization Details Recorded Time 04/08/2025 text/html ROS as noted in the HPI Patient returns to the office today. He felt the injections helped him but started to bother him he got approximately 3-1/2 months of relief. He is interested in discussing treatment option PRIOR AR [id number] returns today for evaluation regarding bilateral shoulder pain. Likely has a component of rotator cuff tear arthropathy bilateral shoulders left worse than right. Previously had injections last September they lasted around 10 to 11 weeks. Otherwise has been doing well. He is interested in talking about treatment options. PRIOR AR 3-2-[age]-year-old [id number] man with bilateral shoulder pain for several [...] SANE score 90% He works for the [place] [employer] for 34 years recently retired. Lexa Taylor MD [address] [place] [address], [address], [place] [facility] 04/08/2025 09:42:29
--- OUTSIDE RECORDS SUMMARY | 2025-06-20 08:32 | XMS_ITS | Data Portability ---
Author Organization [place] [facility] Stevie Orozco [place]ONE [place] Address [address] [place] [address] Care Team Providers Care Psychological Operations Officer Name Role Phone STEVEN PEPPER Primary Care Provider [phone] Assessment Encounter Date Assessment Date Assessment LastModified [...] available 06/20/2024 08:57:10 09/10/2024 09/10/2024 IMPRESSION: 74-year-old liled-wpbp-eeccvx nt man with bilateral left worse than [...] available 09/10/2024 09:09:00 12/10/2024 12/10/2024 IMPRESSION: 74-year-old adcvp-axwo-zgefrh nt man with bilateral left worse than [...] available 12/27/2024 16:34:32 04/08/2025 04/08/2025 IMPRESSION: 74-year-old kicfo-mrnu-mxnjcm nt man with bilateral shoulder rotator cuff [...] or more view 2024 025 [facility], [address], [place], [address], 12/30/2024 17:38:23 XR, hand, 3 or more view 2024 025 [facility], [address], [address], [place], [address], 12/30/2024 17:38:23 Medication Orders lidocai ne (PF) 10 mg/mL (1 %) injecti on solutio n 2024 025 [email or web address] Not available 04/09/2025 10:55:12 Marcain e (PF) 0.5 % (5 mg/mL) injecti on solutio n 2024 025 [email or web address] Not available 04/09/2025 10:55:12 triamci nolone acetoni de 40 mg/mL suspens ion for injecti on 2024 025 [email or web address] Not available 04/09/2025 10:55:12 lidocai ne (PF) 10 mg/mL (1 %) injecti on solutio n 2024 025 [id number], [phone] [place], [address], 12/30/2024 17:38:23 triamci nolone acetoni de 40 mg/mL suspens ion for injecti on 2024 025 [facility] #[id number], [phone] [place], [address], 12/30/2024 17:38:23 lidocai ne (PF) 10 mg/mL (1 %) injecti on solutio n 2024 025 [facility] #1130, [phone] [place], [address], 12/30/2024 17:38:23 triamci nolone acetoni de 40 mg/mL suspens ion for injecti on 2024 025 [facility] #1130, [phone] [place], [address], 12/30/2024 17:38:23 lidocai ne (PF) 10 mg/mL (1 %) injecti on solutio n 2024 025 [email or web address] Not available 12/10/2024 09:03:49 Marcain e (PF) 0.5 % (5 mg/mL) injecti on solutio n 2024 025 [email or web address] Not available 12/10/2024 09:03:49 triamci nolone acetoni de 40 mg/mL suspens ion for injecti on 2024 025 [email or web address] Not available 12/10/2024 09:03:49 lidocai ne (PF) 10 mg/mL (1 %) injecti on solutio n 2024 025 [email or web address] Not available 09/10/2024 09:12:56 Marcain e (PF) 0.5 % (5 mg/mL) injecti on solutio n 2024 025 [email or web address] Not available 09/10/2024 09:12:56 triamci nolone acetoni de 40 mg/mL suspens ion for injecti on 2024 025 [email or web address] Not available 09/10/2024 09:12:57 lidocai ne (PF) 10 mg/mL (1 %) injecti on solutio n [address]/Pharmacy #1130, [phone] [place], [address], 06/20/2024 08:58:56 triamci nolone acetoni de 40 mg/mL suspens ion for injecti on [address]/Pharmacy #1130, [phone] [place], [address], 06/20/2024 08:58:56 Patient TargetsNo targets recorded. Patient Instructions Encounter Date Encounter Id Patient Instructions Last Modified By Organization Details Last Modified Time 06/20/2024 [id number] You have been provided with a cortisone [...] portal DWIGHT. Not available 06/20/2024 08:56:03 12/10/2024 [id number] AAOS Rotator Cuf f Conditioning Not available [...] and Address Organization Details Recorded Time Problem 37179608 Active No known active problems Not Available [facility] 5 00:24:33 Full thickness rotator cuff tear 858046463 Active 2017 Complete tear of right rotator cuff Not Available [facility] 5 00:24:31 Chronic pain of left upper limb 37884174092 257022 Active 2017 Chronic left shoulder pain Not Available [facility] 5 00:24:32 Bilateral inflammat ion of shoulder regions Active 2017 Bilateral shoulder region arthritis Not Available [facility] 5 00:24:33 Left lateral elbow tendinopa thy 63681323753 9100 Active 2018 Lateral epicondyl itis of left elbow Not Available [facility] 5 00:24:32 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 Not Available [facility] 5 00:24:33 Impingeme nt syndrome of right shoulder region 89510472740 9102 Active 2022 MANOHAR WHITEHEAD PA-C [address], [place], [address] , [place] [facility] 3 14:08:50 Impingeme nt syndrome of left shoulder region 15153660938 9104 Active 2022 MANOHAR WHITEHEAD PA-C [address], [place], [address] , [place] [facility] 3 14:09:08 Calcific tendiniti s of right shoulder 47672003424 9107 Active 2022 MANOHAR WHITEHEAD PA-C [address], [place], [address] , [place] [facility] 3 13:49:15 Calcific tendiniti s of left shoulder 66381807853 9108 Active 2022 MANOHAR WHITEHEAD PA-C [address], [place], [address] , [place] - [facility] 3 13:49:21 Pain of right shoulder joint 57124202523 348001 Active 2022 MANOHAR WHITEHEAD PA-C [address], [place], [address] , [place] - [facility] 3 07:54:14 Pain of left shoulder joint 26097644773 512750 Active 2022 MANOHAR WHITEHEAD PA-C [address], [place], [place], [address] , [place] - [facility], [facility] 3 07:54:14 Prepatell ar bursitis of left knee 24784635726 9103 Active 2022 Gianna Kunz MD [address], [place], [place], [address] , [place] [facility] 3 09:40:17 Osteoarth ritis of right glenohume ral joint 02324998050 65336 Active 2023 Gianna Kunz MD [address], [place], [address] , [place] [facility] 4 17:51:01 Arthritis of left glenohume ral joint 67758772023 27609 Active 2023 Gianna Kunz MD [address], [place], [address] , [place] [facility] 4 17:51:08 Disorder of shoulder 089443181 Active 2024 Lexa Taylor MD [address], [place], [address] , [place] [facility] P 08:56:51 Problem Notes None recorded. Procedures Surgical History Date Name Laterality Status Provider Name and Address Organization Details Recorded Time 04/08/20 25 AJR Shoulder GH Inj completed Lexa Taylor MD [address], [place], [address], [place] - [facility] 04/08/2025 09:37:04 12/28/19 25 LES finger joint injection completed [employer] [place] - [facility] 12/27/2024 15:03:09 12/28/19 25 LES trigger finger/De Quervain's injection completed [employer] [place] - [facility] 12/27/2024 15:03:17 12/11/19 25 AJR Shoulder GH Inj completed Lexa Taylor MD [address] [facility], [place], [address], [place] - [facility] 12/10/2024 09:00:17 09/10/19 25 AJR Shoulder GH Inj completed Lexa Taylor MD [address], [place], [address], [place] [facility] 09/10/2024 09:08:15 06/20/20 24 LES Shoulder Interarticular Inj completed Gianna Kunz MD [address] [facility], [place], [address], [place] [facility] 06/20/2024 08:55:54 04/04/20 24 LES Subacromial Shoulder Inj completed Gianna Kunz MD [address], [place], [address], [place] [facility] 04/04/2024 09:02:01 12/28/19 24 LES Subacromial Shoulder Inj completed Gianna Kunz MD [address], [place], [address], [place] [facility] 01/02/2024 17:50:02 09/28/19 24 Shoulder Joint/Bursa Asp & Inj completed MANOHAR WHITEHEAD PA-C [address], [place], [address], [place] [facility] 09/28/2023 08:31:18 06/27/20 23 Shoulder Joint/Bursa Asp & Inj completed MANOHAR WHITEHEAD PA-C [address], [place], [address], [place] [facility] 06/27/2023 07:39:52 03/15/20 23 Shoulder Joint/Bursa Asp & Inj completed MANOHAR WHITEHEAD PA-C [address], [place], [address], [place] [facility] 03/15/2023 07:54:57 12/15/19 23 Shoulder Joint/Bursa Asp & Inj completed MANOHAR WHITEHEAD PA-C [address], [place], [address], [place] [facility] 12/15/2022 13:49:01 cholecystostomy completed Bessy Juarez [facility] 12/14/2022 13:42:43 procedure on gallbladder completed [facility] [place] [facility] 03/15/2023 08:51:20 procedure on foot completed [facility] 03/15/2023 08:51:27 Imaging Results None recorded. Procedure Notes None recorded. Medical Equipment None Reported. Allergies Allergen ID Allergen Name Allergen Category Reaction Reaction Severity Criticality Documentation Date Start Date Code Code System Note Provider Name and Address Organization Details Recorded Time 3773 azithromy mercedes medicatio n Not available Not available Not available 12/14/2022 54861 RxNorm Bessy Juarez null, [facility] 13:41:36 3774 ciproflox acin medicatio n Not available Not available Not available 12/14/2022 2551 RxNorm Bessy Juarez null, [facility] 13:41:42 Medications Name Sig Start Date [...] Updated DateTime 09/10/2024 187.96 cm Laurita Anderson [place] - [facility] 09/10/2024 08:31:29 Date Recorded Body height Provider Name an d Address Organization Details Last Updated DateTime 12/27/2024 187.96 cm Manpreet Kaiser [place] - [facility] 12/27/2024 14:41:44 Social History None recorded. [...] MRSA N Blood Transfusion N Emphysema N Depression N COPD N Hypothyroidism N Pacemaker N Vascular Disease N Gastrointestinal Disease N Anxiety Disorder N Autoimmune disease N Arthritis N Cancer N Stroke N High Cholesterol N Neurologic Disorder N Liver Disease N Organ Transplant N Rheumatoid Arthritis N Arrhythmia N Fibromyalgia N Kidney Disease N Allergies/Hayfever N Adverse Reaction to Anesthesia N Thyroid Problems N Anemia N Brain Injury N Heart Attack (NE) N Osteopenia N Diabetes N Bleeding Disorder [...] IMO Codes Diagnosis Note [id number] FELTON CORTES [facility] [address] [address] 12/14/2022 13:12:21 12/14/2022 14:12:48 Pain of right shoulder joint 8234331437 0269275 M25.511 Pain of le ft shoulder joint 7649733268 5166875 M25.512 Impingemen t syndrome of right shoulder region 0703622564 83409 M75.41 Impingemen t syndrome of left shoulder region 3426798893 32146 M75.42 Calcific t endinitis of right shoulder 2588885321 39216 M75.31 Calcific t endinitis of left shoulder 0372053410 48668 M75.32 [id number] FELTON CORTES [facility] [address] [address] 03/15/2023 08:39:15 03/15/2023 09:07:23 Impingement syndrome of right shoulder region 6723355278 81550 M75.41 Impingemen t syndrome of left shoulder region 5065402977 49822 M75.42 Calcific t endinitis of right shoulder 2487393097 10110 M75.31 Calcific t endinitis of left shoulder 0216289895 82621 M75.32 [id number] FELTON THOMPSON [facility] [address] [address] 05/02/2023 08:28:36 05/02/2023 09:07:13 Pain of left knee joint 6587966316 10753 M25.562 [id number] MD [facility] [address] [address] 05/10/2023 09:11:10 05/10/2023 09:25:32 Prepatellar bursitis of left knee 5005338507 32193 M70.42 [id number] FELTON CORTES [facility] [address] [place] [address] 06/27/2023 08:37:43 06/27/2023 08:57:45 Calcific tendinitis of right shoulder 2087767235 81464 M75.31 Impingemen t syndrome of right shoulder region 7382910919 77232 M75.41 Calcific t endinitis of left shoulder 6257316783 64780 M75.32 Impingemen t syndrome of left shoulder region 9267576426 45268 M75.42 [id number] FELTON CORTES [facility] [address] [address] 09/28/2023 08:16:30 09/28/2023 09:05:42 Pain of left shoulder joint 1082201886 7802302 M25.512 Pain of ri ght shoulder joint 7434081024 5627809 M25.511 Calcific t endinitis of right shoulder 7707929799 81192 M75.31 Impingemen t syndrome of right shoulder region 9531797103 09482 M75.41 Calcific t endinitis of left shoulder 5044784689 66649 M75.32 Impingemen t syndrome of left shoulder region 6197805141 42367 M75.42 [id number] MD TC Alexander [facility] [address] [address] 12/28/2023 08:14:18 12/28/2023 09:21:48 Calcific tendinitis of left shoulder 6941945184 66472 M75.32 M75.31 Additional diagnosis detail: Calcific tendinitis of right shoulder Osteoarthr itis of right glenohumeral joint 0475752887 909868 M19.011 Additional diagnosis detail: Glenohumer al arthritis, right Arthritis of left glenohumeral joint 8683513708 473508 M19.012 Additional diagnosis detail: Glenohumer al arthritis, left [id number] [facility] [address] [place] [address] 04/04/2024 08:19:26 04/04/2024 08:51:53 Calcific tendinitis of left shoulder 4830322418 49391 M75.32 M75.31 Additional diagnosis detail: Calcific tendinitis of right shoulder Osteoarthr itis of right glenohumeral joint 5132803270 066691 M19.011 Additional diagnosis detail: Glenohumer al arthritis, right [id number] MD TC Alexander [facility] 299 [facility] [address] [place] [address] 06/20/2024 08:17:18 06/20/2024 08:55:54 Osteoarthritis of right glenohumeral joint 4114190450 902952 M19.011 Additional diagnosis detail: Glenohumer al arthritis, right Arthritis of left glenohumeral joint 4989081978 673409 M19.012 Additional diagnosis detail: Glenohumer al arthritis, left Impingemen t syndrome of right shoulder region 7047357529 65441 M75.41 Impingemen t syndrome of left shoulder region 1789265665 38568 M75.42 [id number] MD TC Maguire [facility] 299 [facility] [address] [place] [address] 09/10/2024 08:20:47 09/10/2024 09:07:15 Osteoarthritis of right glenohumeral joint 6289937634 601519 M19.011 Arthritis of left glenohumeral joint 1645118982 383566 M19.012 [id number] MD TC Maguire [facility] 299 [facility] [address] [place] [address] 12/10/2024 08:22:18 12/10/2024 09:00:41 Osteoarthritis of right glenohumeral joint 8982267893 140762 M19.011 Arthritis of left glenohumeral joint 4021169912 911800 M19.012 [id number] MD TC Alexander [place] [address] [facility] [address] [place] [address] 12/27/2024 14:08:01 12/27/2024 15:08:22 Pain of bilateral hands 9082273780 7382833 M79.641 M79.642 [id number] Osteoarthr itis of finger joint of right hand 4436422008 3979679 M15.2 0275834705 Triggering of digit 2399 00460 M65.462 [id number] MD TC Maguire [facility] 299 [facility] [address] [place] [address] 04/08/2025 08:32:13 04/08/2025 09:25:13 Osteoarthritis of right glenohumeral joint 2412467367 808717 M19.011 Arthritis of left glenohumeral joint 7594709938 150897 M19.012 Health Concerns Section Related Observation LastModified by Organization Detai ls LastModified Time None Recorded Concern Status LastModified by Organization Details LastModified Time None Recorded Advance Directives Directive None Recorded Payers Insurance Date Sequence Insurance Name Policy Number Policy Gee Covered Member ID Gee Member ID Guarantor Name 04/07/2025 1 [place]ARE [place]: [facility] Porfirio T Diciocco [id number] Porfirio T Diciocco 04/07/2025 2 [facility]INDEMNITY) [id number] 2 Porfirio T Diciocco [id number] Porfirio T Diciocco Notes Date Note Type [...] trying to sleep. Gianna Kunz MD 299 [facility] [address], [place], [address], [place] [facility] 06/20/2024 08:58:49 09/10/2024 text/html ROS as noted in the HPI 74-year-old escxk-iqbr-wedzxxog man with bilateral shoulder pain for several [...] SANE score 90% He works for the [employer] for 34 years recently retired. Lexa Taylor MD [address] [address], [place], [address], [facility] - [facility] 09/10/2024 09:10:28 12/10/2024 text/html ROS as noted in the HPI Patient returns today for evaluation regarding bilateral shoulder pain. Likely has a component of rotator cuff tear arthropathy bilateral shoulders left worse than right. Previously had injections last September they lasted around 10 to 11 weeks. Otherwise has been doing well. He is interested in talking about treatment options. PRIOR AR 3-4-[age]-year-old vqogz-xlvq-vbqrvtrh man with bilateral shoulder pain for several [...] SANE score 90% He works for the [employer] for 34 years recently retired. Lexa Taylor MD [address] [facility] [address], [place], [address], [facility] - [facility] 12/10/2024 09:00:46 12/27/2024 text/html ROS as noted in the HPI This is a 74-year-old joutg-kyab-ksnfngps male who presents today with a new [...] Gianna Kunz MD [address], [place], [address], [place] [facility] 12/27/2024 16:35:13 04/08/2025 text/html ROS as noted in the HPI Patient returns to the office today. He felt the injections helped him but started to bother him he got approximately 3-1/2 months of relief. He is interested in discussing treatment option PRIOR AR [id number] returns today for evaluation regarding bilateral shoulder pain. Likely has a component of rotator cuff tear arthropathy bilateral shoulders left worse than right. Previously had injections last September they lasted around 10 to 11 weeks. Otherwise has been doing well. He is interested in talking about treatment options. PRIOR AR 2-9-6720-year-old rlfjh-loau-leujdugu man with bilateral shoulder pain for several [...] SANE score 90% He works for the [employer] for 34 years recently retired. Lexa Taylor MD [address] [place] [address], [place], [address], [place] [facility] 04/08/2025 09:42:29
--- OUTSIDE RECORDS SUMMARY | 2025-06-20 08:32 | XMS_ITS | Clinical Summary ---
Author Organization [facility] Address [address] [place] [address] Phone Care Team Providers Care Data Entry Technician Name Role Phone Mary Castillo MD Primary Care Provider Allergies Active Allergy Reactions Criticality Noted Date Comments Azithromycin Rash High 06/17/2009 Ciprofloxacin Rash High 06/17/2009 Medications aspirin 81 mg EC tablet Take 1 tablet (81 mg total) by mouth 1 (one) time each day. 12/22/19 18 Active cyanocobalamin (VITAMIN B-12) 500 mcg tablet Take 2 tablets (1,000 mcg total) by mouth 1 (one) time each day. Active sildenafiL (VIAGRA) 100 mg tablet Take 1 tablet (100 mg total) by mouth 1 (one) time each day if needed. 01/11/20 18 Active calcium carbonate (CALCIUM 600 ORAL) Take by mouth 2 (two) times a day. Active multivit-min/oral jorge fumarate (MULTI VITAMIN ORAL) Take by mouth. Activ e folic acid (FOLVITE) 1 mg tablet Take 1 tablet (1,000 mcg total) by mouth 1 (one) time each day. 90 tablet 2 12/04/19 25 Active atorvastatin (LIPITOR) 80 mg tabletIndication s:Presence of aortocoronary bypass graft,Pure hypercholesterol emia, unspecified TAKE 1 TABLET BY MOUTH EVERY DAY, PLEASE STOP SIMVASTATIN 90 tablet 3 02/15/20 25 Active furosemide (LASIX) 20 mg tablet TAKE 1 TABLET BY MOUTH 1 (ONE) TIME EACH DAY IF NEEDED (FOR INCREASED LEG SWELLING OR WEIGHT GAIN). 90 tablet 2 02/29/20 25 Active metoprolol succinate (TOPROL-XL) 25 mg 24 hr tablet Take 1 tablet (25 mg total) by mouth 1 (one) time each day. 90 tablet 3 05/20/20 25 Active valsartan (DIOVAN) 80 mg tabletIndication s:Presence of aortocoronary bypass graft,Chronic systolic (congestive) heart failure (CMS/HCC V24, CMS/HCC V28) TAKE 1 TABLET BY MOUTH 1 TIME EACH DAY. 90 tablet 3 06/09/20 25 Active valsartan (DIOVAN) 80 mg tabletIndication s:Presence of aortocoronary bypass graft,Chronic systolic (congestive) heart failure (CMS/HCC V24, CMS/HCC V28) Take 1 tablet (80 mg total) by mouth 1 (one) time each day. 90 tablet 02/29/20 25 2024 Discontinued Active Problems Problem Noted Date [...] Allergic rhinitis due to pollen 07/24/2024 Hypogammaglobulinemia ([facility] V24) 12/15/2021 Assessment & Plan (01/22/2025 8:53 AM EDT): Lateral epicondylitis of left elbow 07/19/2019 Shoulder impingement syndrome, left 02/12/2019 Shoulder impingement, right 02/12/2019 Bilateral shoulder region arthritis 04/17/2018 Chronic left shoulder pain 09/12/2017 Complete tear of right rotator cuff 09/12/2017 Encounters Date Type Department Care Team Description 06/11/2025 9:25 AM EST - 06/11/2025 11:59 PM EST Hospital Encounter [address] [phone] Pari Richey MD Nasal polyps (Primary Dx) Discharge Disposition: Home or Self Care 05/28/2025 9:18 AM EDT - 05/28/2025 11:59 PM EDT Hospital Encounter [facility] [address] [place] [phone] Pari Richey MD Nasal polyps (Primary Dx) Discharge Disposition: Home or Self Care 05/20/2025 Telephone [facility] [address] [place] [phone] Roger Samano NP 05/14/2025 9:13 AM EDT - 05/14/2025 11:59 PM EDT Hospital Encounter [facility] [address] [place] [phone] Pari Richey MD Nasal polyps (Primary Dx) Discharge Disposition: Home or Self Care 05/02/2025 2:30 PM EDT Office Visit [facility] [address] [place] [address] Severino Chino MD HTN (hypertension), benign (Primary Dx); Presence of aortocoronary bypass graft; Chronic systolic (congestive) heart failure (CMS/HCC V24, CMS/HCC V28); H/O coronary artery bypass surgery; Chronic systolic heart failure (CMS/HCC V24, CMS/HCC V28) 04/30/2025 1:20 PM EDT - 04/30/2025 11:59 PM EDT Hospital Encounter [facility] [address] [place] [phone] Pari Richey MD Nasal polyps (Primary Dx) [...] Info) Description 06/25/2025 9:00 AM EST Appointment [address] [phone] 07/09/2025 9:00 AM EST Appointment [facility] [address] [phone] 07/23/2025 9:00 AM EST Appointment [facility] [address] [place] [phone] 07/24/2025 8:15 AM EST Office Visit Internal Medicine - [place] [address] [facility] [address] [place] [phone] Mary Castillo MD [address] [place] [phone] 04/28/2026 10:00 AM EDT Ancillary Procedure [facility] [address] [facility] [address] [place] [phone] Health Maintenance Due Date Last Done Comments Colorectal Cancer Screening: Colonoscopy 1950 Zoster Vaccines (2 of 3) 02/10/2014 12/16/2013 Abdominal Aortic Aneurysm (AAA) Screen 07/14/2022 Hepatitis C Screening 07/14/2022 Social Influencers of Health Screening 07/14/2022 RSV Immunization Adult Patients (1 - 1-dose 75+ series) 2024 COVID-19 Vaccine ( season) 2025 08/04/2021, 10/13/2020, 09/15/2020 Hypertension/CHF/CAD Annual [...] Routine 01/20/2025 7:44 AM EDT Hypogammaglobuline margoth ([facility]/HCC V24) HTN (hypertension), benign Mixed hyperlipidemia H/O [...] GEMUSE QTc 408 ms GEMUSE P Wave Sorento 19 degrees GEMUSE R [place] 80 degrees GEMUSE T Soren[place] -9 degrees GEMUSE ECG Interpretation Normal sinus [...] 2:35 PM EDT 05/05/2025 10:45 AM EDT us Severino Chino MD ECG ORDERABLES Final Result GEMUSE * Lipid panel with reflex to direct LDL (01/20/2025 7:44 AM EDT) Cholesterol 116 0 - 200 mg/dL LAB CHEMISTRY METHOD 01/20/2025 2:20 PM EDT [facility] Triglycerides 74 0 - 150 mg/dL LAB CHEMISTRY METHOD 01/20/2025 2:20 PM EDT [facility] HDL 77 >=40 mg/dL LAB CHEMISTRY METHOD 01/20/2025 2:20 PM EDT [facility] LDL Calculated 24 0 - 100 mg/dL LAB CHEMISTRY METHOD 01/20/2025 2:20 PM EDT [facility] VLDL Cholesterol Kristian 14.8 mg/dL LAB CHEMISTRY METHOD 01/20/2025 2:20 PM EDT [facility] Non HDL Chol. (LDL+VLDL) 39 <145 mg/dL LAB CHEMISTRY METHOD 01/20/2025 2:20 PM EDT [facility] Chol/HDL Ratio 1.5 0.0 - 4.4 LAB CHEMISTRY METHOD 01/20/2025 2:20 PM [facility] Blood Venous blood specimen / Unknown Venipuncture / Unknown 01/20/2025 7:44 AM EDT 01/20/2025 7:44 AM EDT us Mary Castillo MD LAB BLOOD ORDERABLES Final Res ult [facility] [address] [place] [address], [place] [phone] * (ABNORMAL) Comprehensive metabolic panel (01/20/2025 7:44 AM EDT) Sodium 143 133 - 145 mmol/L LAB CHEMISTRY METHOD 01/20/2025 2:20 PM [facility] Potassium 4.4 3.5 - 5.5 mmol/L LAB CHEMISTRY METHOD 01/20/2025 2:20 PM [facility] Chloride 107 96 - 110 mmol/L LAB CHEMISTRY METHOD 01/20/2025 2:20 PM [facility] CO2 31 21 - 32 mmol/L LAB CHEMISTRY METHOD 01/20/2025 2:20 PM [facility] Anion Gap 5 3 - 11 LAB CHEMISTRY METHOD 01/20/2025 2:20 PM [facility] Glucose 95 70 - 100 mg/dL LAB CHEMISTRY METHOD 01/20/2025 2:20 PM [facility] BUN 21 5 - 25 mg/dL LAB CHEMISTRY METHOD 01/20/2025 2:20 PM [facility] Creatinine 1.25 0.70 - 1.30 mg/dL LAB CHEMISTRY METHOD 01/20/2025 2:20 PM EDT [facility] eGFR 60 >=60 mL/min/1. 73m2 LAB CHEMISTRY METHOD 01/20/2025 2:20 PM T [facility] Comment:Calculation based on the Chronic Kidney Disease Epidemiology Collaboration (CKD-EPI) equation refit without adjustment for race. BUN/Creatinine Ratio 16.8 LAB CHEMISTRY METHOD 01/20/2025 2:20 PM T [facility] Calcium 8.6 8.5 - 10.5 mg/dL LAB CHEMISTRY METHOD 01/20/2025 2:20 PM [facility] AST (SGOT) 20 10 - 42 unit/L LAB CHEMISTRY METHOD 01/20/2025 2:20 PM [facility] ALT (SGPT) 51 10 - 60 unit/L LAB CHEMISTRY METHOD 01/20/2025 2:20 PM [facility] Alkaline Phosphatase 85 42 - 121 unit/L LAB CHEMISTRY METHOD 01/20/2025 2:20 PM [facility] Total Protein 5.9(L) 6.0 - 8.0 g/dL LAB CHEMISTRY METHOD 01/20/2025 2:20 PM [facility] Albumin 3.8 3.2 - 5.0 g/dL LAB CHEMISTRY METHOD 01/20/2025 2:20 PM [facility] Total Bilirubin 1.5(H) 0.0 - 1.4 mg/dL LAB CHEMISTRY METHOD 01/20/2025 2:20 PM T [facility] Blood Venous blood specimen / Unknown Venipuncture / Unknown 01/20/2025 7:44 AM EDT 01/20/2025 7:44 AM EDT us Mary Castillo MD LAB BLOOD ORDERABLES Final Res ult [facility] [address] [place], [place] [address] [phone] from Last 3 Months or Most Recently Relevant to Health Maintenance Insurance MEDICARE [facility] Care Teams Data Entry Technician Relationship Specialty Start Date End Date Mary Castillo MD [address] [facility] [address] [place] [address] PCP - General Internal Medicine 05/26/18
== END 2025-06-20 09:01 | disposition home or self-care (01) ==
LOC: HO.HUSH 08:21
PROVIDERS: PCP Internal Medicine; Visit Provider Urology
DX: R97.20 Elevated prostate specific antigen [PSA] (principal); N52.9 Male erectile dysfunction, unspecified
CPT/HCPCS: 99214; G2211

== ENCOUNTER → 2025-06-20 08:20 | Outpatient (BNVA) | payer MEDICARE, OTHER, SELFPAY | PROVIDERS: PCP Internal Medicine; Visit Provider Urology | DX: R97.20 Elevated prostate specific antigen [PSA] (principal); N52.9 Male erectile dysfunction, unspecified; Z79.82 Long term (current) use of aspirin | CPT/HCPCS: 99212 ==